=== PATIENT | female | born 2005 | race African-American/Black ===

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

== ENCOUNTER → 2023-03-18 | Emergency (ER) | payer OTHER, SELFPAY ==
[~2023-03-18] MED LIST: MORPHINE 2 MG/ML SYR ONE; NA CHLORIDE 0.9% 100 ML ONE; PIPERACIL/TAZO 3.375 GM VIAL IV ONE
--- OUTSIDE RECORDS SUMMARY | 2023-03-18 02:32 | XMS REPORT | Continuity of Care Document ---
Author Name Unknown Address [address] [place] [address] [facility] thconnect Address [address] [place] [address] Care Team Providers Care Commercial Sales Director Name Role Phone Pcp, Patient Does Not Have A Primary Care Physic terese CHILO SCHAEFER Attending Clinician Unavailable Chilo Otero Attending Clinician [phone] Doctor Unassigned, [place] Attending Clinician U NATALIE Wilkins Attending Clinician NATALIE Beckwith Attending Clinician KATARINA Evans Attending Clinician Katarina Mariscal MD Attending Clinician [phone] Unknown, Attending Attending Clinician Marilia Gray Attending Clinician [phone] KEIKO BANEGAS Attending Clinician KEIKO Gomez Attending Clinician Walter bob Payers Payer Name Policy Type Policy Number Effective Date Expirati on Date Source [facility] [id number] 2019 00:00:00 Problems Condition Name Condition Details Condition Category Status Onset Date Resolution Date Last Treatment Date Treating Clinician Comments Source Encounter for initial prescripti on of contracept rasta, unspecifie d contracept zahra Encounter for initial prescripti on of contracept rasta, unspecifie d contracept zahra Disease Active 2021-03 2-05 00:00: 00 [facility] Menorrhagi a with irregular cycle Menorrhagi a with irregular cycle Disease Active 2021-03 1-07 00:00: 00 [facility] Acute vaginitis Acute vaginitis Disease Active 2021-03 0-30 00:00: 00 [facility] General counseling and advice on female contracept ion General counseling and advice on female contracept ion Disease Active 2021-03 0 00:00: 00 [facility] Unprotecte d sexual intercours e Unprotecte d sexual intercours e Disease Active 2021-03 0 00:00: 00 [facility] Allergies, Adverse Reactions, Alerts Allergy Name Allergy Type Status Severity Reaction(s) Onset Date Inactive Date Treating Clinician Comments Source NO KNOWN ALLERGIE S Drug Class Active [facility] Social History Social Habit Start Date Stop Date Quantity Comments Source History SDOH Alcohol Frequency [facility] History SDOH Alcohol Std Drinks [facility] History SDOH Alcohol Binge [facility] Alcohol intake 2023-02-13 00:00:00 2023-02-13 00:00:00 Current drinker of alcohol (finding) [facility] History of Social function 2023-02-13 00:00:00 2023-02-13 00:00:00 [facility] Exposure to SARS-CoV-2 (event) 2022-01-30 00:00:00 2022-02-09 13:18:00 Not sure [facility] Alcohol Comment 2022-01-03 00:00:00 2022-01-03 00:00:00 occasionally [facility] Tobacco use and exposure 2022-01-03 00:00:00 2022-01-03 00:00:00 Smokeless tobacco non-user [facility] Sex Assigned At 2003 00:00:00 2005 00:00:00 [facility] Smoking Status Start Date Stop Date Source Never smoked tobacco [facility] Tobacco smoking consumption unknown [facility] Medications Ordered Medication Name Filled Medication Name Start Date Stop Date Current Medication? Ordering Clinician Indication Dosage Frequency Signature (SIG) Comments Components Source amoxicillin 875 mg tablet 2022-03 00:00: 00 02-27 05:59 :00 Yes [id number] 875mg Take 1 tablet by mouth in the morning and 1 tablet in the evening. Do all this for 10 days. [facility] medroxyPROG ESTERone (DEPO-PROVE RA) injection 150 mg 2021-03 19:00: 00 02-14 18:11 :00 No [id number] [facility] medroxyPROG ESTERone (DEPO-PROVE RA) injection 150 mg 2021-03 19:00: 00 02-14 18:11 :00 No [id number] 150mg 150 mg, Intramuscu lar, ONCE, 1 dose, On Mon02/14/22 at 1300, Routine [facility] medroxyPROG ESTERone (DEPO-PROVE RA) injection 150 mg 2021-03 19:00: 00 02-14 18:11 :00 No [id number] [address] medroxyPROG ESTERone (DEPO-PROVE RA) injection 150 mg 2021-03 19:00: 00 02-14 18:11 :00 No [id number] 150mg 150 mg, Intramuscu lar, ONCE, 1 dose, On Mon02/14/22 at 1300, Routine [facility] medroxyPROG ESTERone (DEPO-PROVE RA) syringe 150 mg 2021-03 18:15: 00 02-14 18:10 :21 No [id number] [address] [facility] medroxyPROG ESTERone (DEPO-PROVE RA) syringe 150 mg 2021-03 18:15: 00 02-14 18:10 :21 No [id number] [address] [facility] cefTRIAXone (ROCEPHIN) injection 500 mg 2021-03 20:30: 00 02-09 19:44 :00 No [id number] 500mg [facility] cefTRIAXone (ROCEPHIN) injection 500 mg 2021-03 20:30: 00 02-09 19:44 :00 No [id number] 500mg 500 mg, Intramuscu lar, ONCE, 1 dose, On Mon02/09/22 at 1430, WARREN
Re ason for Anti-Infec tive: Empiric Therapy for Suspected Infection< br>Empiric Therapy Site: Urine
D uration of therapy: 72 hours [facility] cefTRIAXone (ROCEPHIN) injection 500 mg 2021-03 20:30: 00 02-09 19:44 :00 No [id number] [address] [facility]OC[facility]PHIN[facility] 500 mg 2021-03 20:30: 00 02-09 19:44 :00 No [id number] 500mg 500 mg, Intramuscu lar, ONCE, 1 dose, On Mon02/09/22 at 1430, WARREN
Re ason for Anti-Infec tive: Empiric Therapy for Suspected Infection< br>Empiric Therapy Site: Urine
D uration of therapy: 72 hours [facility] cefTRIAXone (ROCEPHIN) injection 500 mg 2021-03 20:30: 00 02-09 19:44 :00 No [id number] [address] [facility] cefTRIAXone (ROCEPHIN) injection 500 mg 2021-03 20:30: 00 02-09 19:44 :00 No [id number] 500mg 500 mg, Intramuscu lar, ONCE, 1 dose, On Mon02/09/22 at 1430, WARREN
Re ason for Anti-Infec tive: Empiric Therapy for Suspected Infection< br>Empiric Therapy Site: Urine
D uration of therapy: 72 hours [facility] cefTRIAXone (ROCEPHIN) injection 500 mg 2021-03 20:30: 00 02-09 19:44 :00 No [id number] 500mg [facility] cefTRIAXone (ROCEPHIN) injection 500 mg 2021-03 20:30: 00 02-09 19:44 :00 No [id number] 500mg 500 mg, Intramuscu lar, ONCE, 1 dose, On Mon02/09/22 at 1430, WARREN
Re ason for Anti-Infec tive: Empiric Therapy for Suspected Infection< br>Empiric Therapy Site: Urine
D uration of therapy: 72 hours [facility] metroNIDAZO LE 500 mg tablet 2021-03 00:00: 00 Yes 500mg Take 1 tablet by mouth every 12 (twelve) hours. [facility] metroNIDAZO LE 500 mg tablet 2021-03 00:00: 00 Yes 500mg Take 1 tablet by mouth every 12 (twelve) hours. [facility] metroNIDAZO LE 500 mg tablet 2021-03 00:00: 00 Yes 500mg Take 1 tablet by mouth every 12 (twelve) hours. [facility] metroNIDAZO LE 500 mg tablet 2021-03 00:00: 00 Yes 500mg Take 1 tablet by mouth every 12 (twelve) hours. [facility] metroNIDAZO LE 500 mg tablet 2021-03 00:00: 00 Yes 500mg Take 1 tablet by mouth every 12 (twelve) hours. [facility] metroNIDAZO LE 500 mg tablet 2021-03 00:00: 00 Yes 500mg Take 1 tablet by mouth every 12 (twelve) hours. [facility] metroNIDAZO LE 500 mg tablet 2021-03 00:00: 00 Yes 500mg Take 1 tablet by mouth every 12 (twelve) hours. [facility] metroNIDAZO LE 500 mg tablet 2021-03 00:00: 00 Yes 500mg Take 1 tablet by mouth every 12 (twelve) hours. [facility] metroNIDAZO LE 500 mg tablet 2021-03 00:00: 00 Yes 500mg Take 1 tablet by mouth every 12 (twelve) hours. [facility] metroNIDAZO LE 500 mg tablet 2021-03 00:00: 00 Yes 500mg Take 1 tablet by mouth every 12 (twelve) hours. [facility] metroNIDAZO LE 500 mg tablet 2021-03 00:00: 00 Yes 500mg Take 1 tablet by mouth every 12 (twelve) hours. [facility] metroNIDAZO LE 500 mg tablet 2021-03 00:00: 00 Yes 500mg Take 1 tablet by mouth every 12 (twelve) hours. [facility] metroNIDAZO LE 500 mg tablet 2021-03 00:00: 00 Yes 500mg Take 1 tablet by mouth every 12 (twelve) hours. [facility] No known medications 2021-03 030 10:34: 21 No No known medication s [facility] No known medications 2021-03 030 10:34: 21 No No known medication s [facility] ibuprofen 600 mg tablet 2021-03 0 00:00: 00 Yes 600mg Take 600 mg by mouth every 8 (eight) hours as needed. [facility] ibuprofen 600 mg tablet 2021-03 0 00:00: 00 Yes 600mg Take 600 mg by mouth every 8 (eight) hours as needed. [facility] ibuprofen 600 mg tablet 2021-03 0 00:00: 00 Yes 600mg Take 600 mg by mouth every 8 (eight) hours as needed. [facility] ibuprofen 600 mg tablet 2021-03 0 00:00: 00 Yes 600mg Take 600 mg by mouth every 8 (eight) hours as needed. [facility] ibuprofen 600 mg tablet 2021-03 0 00:00: 00 Yes 600mg Take 600 mg by mouth every 8 (eight) hours as needed. [facility] ibuprofen 600 mg tablet 2021-03 028 00:00: 00 Yes 600mg Take 600 mg by mouth every 8 (eight) hours as needed. [facility] ibuprofen 600 mg tablet 2021-03 028 00:00: 00 Yes 600mg Take 600 mg by mouth every 8 (eight) hours as needed. [facility] ibuprofen 600 mg tablet 2021- 028 00:00: 00 Yes 600mg Take 600 mg by mouth every 8 (eight) hours as needed. [facility] ibuprofen 600 mg tablet 2021-03 0 00:00: 00 Yes 600mg Take 600 mg by mouth every 8 (eight) hours as needed. [facility] ibuprofen 600 mg tablet 2021-03 0 00:00: 00 Yes 600mg Take 600 mg by mouth every 8 (eight) hours as needed. [facility] ibuprofen 600 mg tablet 2021-03 0 00:00: 00 Yes 600mg Take 600 mg by mouth every 8 (eight) hours as needed. [facility] ibuprofen 600 mg tablet 2021-03 0 00:00: 00 Yes 600mg Take 600 mg by mouth every 8 (eight) hours as needed. [facility] ibuprofen 600 mg tablet 2021-03 00:00: 00 Yes 600mg Take 600 mg by mouth every 8 (eight) hours as needed. [facility] ibuprofen 600 mg tablet 2021-03 00:00: 00 Yes 600mg Take 600 mg by mouth every 8 (eight) hours as needed. [facility] ibuprofen 600 mg tablet 2021-03 00:00: 00 Yes 600mg Take 600 mg by mouth every 8 (eight) hours as needed. [facility] metroNIDAZO LE 500 mg tablet 2021-03 00:00: 00 01-12 04:59 :00 No [id number] 500mg Take 1 tablet by mouth every 12 (twelve) hours for 7 days. [facility] metroNIDAZO LE 500 mg tablet 2021-03 0 00:00: 00 01-12 04:59 :00 No [id number] 500mg Take 1 tablet by mouth every 12 (twelve) hours for 7 days. [facility] terconazole 80 mg vaginal suppository 2021-03 0 00:00: 00 01-08 04:59 :00 No [id number] 80mg Insert 1 Suppositor y into vagina at bedtime for 3 days. [facility] terconazole 80 mg vaginal suppository 2021-03 025 00:00: 00 01-08 04:59 :00 No [id number] 80mg Insert 1 Suppositor y into vagina at bedtime for 3 days. [facility] Vital Signs Vital Name Observation Time Observation Value Comments S rama Systolic blood pressure 2023-02-13 19:16:00 109 mm[Hg] [facility] Diastolic blood pressure 2023-02-13 19:16:00 73 mm[Hg] [facility] Heart rate 2023-02-13 19:16:00 73 /min [facility] Respiratory rate 2023-02-13 19:16:00 18 /min [facility] Body height 2023-02-13 19:16:00 160 cm [facility] Body weight 2023-02-13 19:16:00 48.988 kg [facility] BMI 2023-02-13 19:16:00 19.13 kg/m2 [facility] Oxygen saturation in Arterial blood by Pulse oximetry 2023-02-13 19:16:00 100 /min [facility] Systolic blood pressure 2022-02-14 17:38:00 108 mm[Hg] [facility] Diastolic blood pressure 2022-02-14 17:38:00 72 mm[Hg] [facility] Heart rate 2022-02-14 17:38:00 67 /min [facility] Body temperature 2022-02-14 17:38:00 36.83 Sabi [facility] Respiratory rate 2022-02-14 17:38:00 16 /min [facility] Body height 2022-02-14 17:38:00 160 cm [facility] Body weight 2022-02-14 17:38:00 50.213 kg [facility] BMI 2022-02-14 17:38:00 19.61 kg/m2 [facility] Body mass index (BMI) [Percentile] Per age and sex 2022-02-14 17:38:00 25.47 % [facility] Oxygen saturation in Arterial blood by Pulse oximetry 2022-02-14 17:38:00 98 /min [facility] Systolic blood pressure 2022-02-09 19:19:00 113 mm[Hg] [facility] Diastolic blood pressure 2022-02-09 19:19:00 73 mm[Hg] [facility] Heart rate 2022-02-09 19:19:00 60 /min [facility] Body temperature 2022-02-09 19:19:00 36.83 Sabi [facility] Respiratory rate 2022-02-09 19:19:00 18 /min [facility] Body height 2022-02-09 19:19:00 160 cm [facility] Body weight 2022-02-09 19:19:00 50.621 kg [facility] BMI 2022-02-09 19:19:00 19.77 kg/m2 [facility] Body mass index (BMI) [Percentile] Per age and sex 2022-02-09 19:19:00 27.71 % [facility] Oxygen saturation in Arterial blood by Pulse oximetry 2022-02-09 19:19:00 100 /min [facility] Systolic blood pressure 2022-01-17 17:52:00 102 mm[Hg] [facility] Diastolic blood pressure 2022-01-17 17:52:00 69 mm[Hg] [facility] Heart rate 2022-01-17 17:52:00 76 /min [facility] Respiratory rate 2022-01-17 17:52:00 18 /min [facility] Body height 2022-01-17 17:52:00 160 cm [facility] Body weight 2022-01-17 17:52:00 51.256 kg [facility] BMI 2022-01-17 17:52:00 20.02 kg/m2 [facility] Body mass index (BMI) [Percentile] Per age and sex 2022-01-17 17:52:00 31.42 % [facility] Systolic blood pressure 2022-01-03 19:01:00 116 mm[Hg] [facility] Diastolic blood pressure 2022-01-03 19:01:00 79 mm[Hg] [facility] Heart rate 2022-01-03 19:01:00 73 /min [facility] Body temperature 2022-01-03 19:01:00 37.06 Sabi [facility] Respiratory rate 2022-01-03 19:01:00 18 /min [facility] Body height 2022-01-03 19:01:00 160 cm [facility] Body weight 2022-01-03 19:01:00 53.524 kg [facility] BMI 2022-01-03 19:01:00 20.90 kg/m2 [facility] Body mass index (BMI) [Percentile] Per age and sex 2022-01-03 19:01:00 43.77 % [place] [facility] Procedures Procedure Date / Time Performed Performing Clinician Source ASSIGNMENT OF BENEFITS 2023-02-13 19:13:29 Docphoenix r Unassigned, [place] [facility] POCT TEST 2023-02-13 00:00:00 Marcos Schaefer [facility] CONSENT FOR CONTRACEPTION 2022-02-14 06:01:00 Doctor Unassigned, [place] [facility] POCT TEST 2022-02-14 00:00:00 Natalie Zuniga [facility] URINE CULTURE 2022-02-09 20:00:00 Katarina Ruelas [facility] POCT TEST 2022-02-09 19:59:00 Katarina Ruelas [facility] POCT URINALYSIS 2022-02-09 19:55:[address] [facility] GALV ONLY - VAGINAL PATHOGENS BY NUCLEIC ACID TESTING 2022-02-09 19:43:00 Katarina Ruelas [facility] GC & CHLAMYDIA AMPLIFIED ASSAY 2022-02-09 19:32:00 Katarina Ruelas [facility] GC & CHLAMYDIA AMPLIFIED ASSAY 2022-01-03 19:25:00 Keiko Banegas [facility] GALV ONLY - VAGINAL PATHOGENS BY NUCLEIC ACID TESTING 2022-01-03 19:25:00 Keiko Banegas [facility] ASSIGNMENT OF BENEFITS 2022-01-03 18:12:46 Docto r Unassigned, [place] [facility] POCT TEST 2022-01-03 00:00:00 Toni Banegas [facility] Encounters Start Date/Time End Date/Time Encounter Type Admission Type Attending Clinicians Care Facility Care Department Encounter ID Source 2023-02-17 00:00:00 2023-02-17 00:00:00 Outpatient CHILO ALARCON [facility] [id number] [facility] 2023-02-16 00:00:00 2023-02-16 00:00:[address] [facility] [id number] 350.1.13.10 4.2.7.2.686 [id number] [facility] 2023-02-13 12:30:00 2023-02-13 13:59:16 Outpatient CHILO ALARCON [facility] [id number] [facility] 2023-02-13 12:30:00 2023-02-13 13:59:16 Office [facility] [id number] 350.1.13.10 4.2.7.2.686 [id number] [facility] 2023-02-13 00:00:00 2023-02-13 00:00:00 Orders Only Doctor Unassigned, [place] [facility] 1.2.840.114 350.1.13.10 4.2.7.2.686 [id number] [facility] 2023-02-09 15:30:00 2023-02-09 15:30:00 Outpatient R CHILO SCHAEFER [facility] [id number] [facility] 2022-05-11 10:30:00 2022-05-11 10:30:00 Outpatient R [facility] [id number] [facility] 2022-02-14 11:00:00 2022-02-14 12:10:15 Outpatient R NATALIE HERBERT MARISOL [facility] [id number] [facility] 2022-02-14 11:00:00 2022-02-14 12:10:15 Office Visit Natalie Herbert [facility] 1..114 350.1.13.10 4.2.7.2.686 [id number] [facility] 2022-02-14 00:00:00 2022-02-14 00:00:00 Orders Only Doctor Unassigned, [place] [facility] 1..114 350.1.13.10 4.2.7.2.686 [id number] [facility] 2022-02-11 11:30:00 2022-02-11 11:30:00 Outpatient R JE Aury NATALIEMornea VARGASCarrieCASIE CLARE JeffersSOL [facility] [id number] [facility] 2022-02-09 13:00:00 2022-02-09 13:56:02 Outpatient R KATARINA RUELAS [facility] [id number] [facility] 2022-02-09 13:00:00 2022-02-09 13:56:02 Urgent Care Katarina Ruelas Unknown, Attending [facility] 1.840.114 350.1.13.10 4.2.7.2.686 [id number] [facility] 2022-02-09 00:00:00 2022-02-09 00:00:00 Letter (Out) Katarina Ruelas [facility] 1.840.114 350.1.13.10 4.2.7.2.686 [id number] [facility] 2022-02-09 00:00:00 2022-02-09 00:00:00 Letter (Out) Marilia Schulte [facility] 1.2.840.114 350.1.13.10 4.2.7.2.686 [id number] [facility] 2022-01-31 13:30:00 2022-01-31 13:30:00 Outpatient R KEIKO BANEGAS CHERYAL [facility] [id number] [facility] 2022-01-18 13:45:00 2022-01-18 13:45:00 Outpatient R [facility] [id number] [facility] 2022-01-17 11:30:00 2022-01-17 12:00:[address] [facility] 1..840.114 350.1.13.10 4.2.7.2.686 [id number] [facility] 2022-01-17 11:30:00 2022-01-17 11:30:00 Outpatient R REMIGIOKEIKO TEE REMIGIOKEIKO TEE [facility] [id number] [facility] 2022-01-05 00:00:00 2022-01-05 00:00:00 [facility] 1..840.114 350.1.13.10 4.2.7.2.686 [id number] [facility] 2022-01-04 00:00:00 2022-01-04 00:00:00 Case Management [facility] 1..840.114 350.1.13.10 4.2.7.2.686 [id number] [facility] 2022-01-03 11:00:00 2022-01-03 14:36:03 Outpatient R REMIGIOKEIKO TEE REMIGIOKEIKO TEE [facility] [id number] [facility] 2022-01-03 11:00:00 2022-01-03 14:36:03 Office Visit Keiko Banegas [facility] 1..840.114 350.1.13.10 4.2.7.2.686 [id number] [facility] 2022-01-03 00:00:00 2022-01-03 00:00:00 Orders Only Doctor Unassigned, [place] [facility] 1.2.840.114 350.1.13.10 4.2.7.2.686 [id number] [facility] Results Test Description Test Time Test Comments Results Result Co mments Source [id number] 19:56:00* Test Item Value Reference Range Interpretation Comme nts POCT PREG (test code = 1605) Negative On board controls acceptable with C Line (test code = 3574) Yes POCT PREG LOT # (test code = 3575) POCT PREG TEST DATE ( test code = 3576[id number] 17:51:00* Test Item Value Reference Range Interpretation Comme nts POCT PREG (test code = 1605) Negative On board controls acceptable with C Line (test code = 3574) Yes POCT PREG LOT # (test code = 3575) POCT PREG TEST DATE ( test code = 3576) [facility] [id number] 17:51:00* Test Item Value Reference Range Interpretation Comme nts POCT PREG (test code = 1605) Negative On board controls acceptable with C Line (test code = 3574) Yes POCT PREG LOT # (test code = 3575) POCT PREG TEST DATE ( test code = 3576) [facility] [id number] 19:59:00* Test Item Value Reference Range Interpretation Comme nts POCT PREG (test code = 1605) Negative On board controls acceptable with C Line (test code = 3574) Yes POCT PREG LOT # (test code = 3575) [id number] POCT PREG TEST DATE ( test code = 3576) 06/11/2023 Lab Interpretation (test cod e = 68734-2) [facility] [id number] 19:59:00* Test Item Value Reference Range Interpretation Comme nts POCT PREG (test code = 1605) Negative On board controls acceptable with C Line (test code = 3574) Yes POCT PREG LOT # (test code = 3575) [id number] POCT PREG TEST DATE ( test code = 3576) 06/11/2023 Lab Interpretation (test cod e = 58038-2) [facility] [id number] 19:59:00* Test Item Value Reference Range Interpretation Comme nts POCT PREG (test code = 1605) Negative On board controls acceptable with C Line (test code = 3574) Yes POCT PREG LOT # (test code = 3575) [id number] POCT PREG TEST DATE ( test code = 3576) 06/11/2023 Lab Interpretation (test cod e = 56600-7) [facility] [id number] 19:59:00* Test Item Value Reference Range Interpretation Comme nts POCT PREG (test code = 1605) Negative On board controls acceptable with C Line (test code = 3574) Yes POCT PREG LOT # (test code = 3575) [id number] POCT PREG TEST DATE ( test code = 3576) 06/11/2023 Lab Interpretation (test cod e = 92212-5) [facility] URINALYSIS W SPECIFIC [id number] 19:55:00* Test Item Value Reference Range Interpretation Comme nts POCT U SP GRAV (test code = 3255) 1.025 mg/dl 1.005-1.025 POCT PH U (test code = 3254) 5 mg/dl 5-8 POCT U LEUK EST (test code = 3263) Negative Negative - Negative POCT U NIT (test code = 3262) Negative Negative - Negati ve POCT U PROT (test code = 3259) Negative Negative - Negative POCT U GLU (test code = 3256) Negative Negative - Negati ve POCT U KETONE (test code = 3258) Negative Negative - Negative POCT U UROBILI (test code = 3260) Normal 0.2-1 POCT U BILI (test code = 3261) Negative Negative - Negative POCT U BLD (test code = 3257) Negative Negative - Negati ve POCT U COLOR (test code = 3266) POCT U APPEAR (test code = 3267) Lab Interpretation (test cod e = 04335-0) Normal [facility] URINALYSIS W SPECIFIC [id number] 19:55:00* Test Item Value Reference Range Interpretation Comme nts POCT U SP GRAV (test code = 3255) 1.025 mg/dl 1.005-1.025 POCT PH U (test code = 3254) 5 mg/dl 5-8 POCT U LEUK EST (test code = 3263) Negative Negative - Negative POCT U NIT (test code = 3262) Negative Negative - Negati ve POCT U PROT (test code = 3259) Negative Negative - Negative POCT U GLU (test code = 3256) Negative Negative - Negati ve POCT U KETONE (test code = 3258) Negative Negative - Negative POCT U UROBILI (test code = 3260) Normal 0.2-1 POCT U BILI (test code = 3261) Negative Negative - Negative POCT U BLD (test code = 3257) Negative Negative - Negati ve POCT U COLOR (test code = 3266) POCT U APPEAR (test code = 3267) Lab Interpretation (test cod e = 46860-5) Normal [facility] URINALYSIS W SPECIFIC [id number] 19:55:00* Test Item Value Reference Range Interpretation Comme nts POCT U SP GRAV (test code = 3255) 1.025 mg/dl 1.005-1.025 POCT PH U (test code = 3254) 5 mg/dl 5-8 POCT U LEUK EST (test code = 3263) Negative Negative - Negative POCT U NIT (test code = 3262) Negative Negative - Negati ve POCT U PROT (test code = 3259) Negative Negative - Negative POCT U GLU (test code = 3256) Negative Negative - Negati ve POCT U KETONE (test code = 3258) Negative Negative - Negative POCT U UROBILI (test code = 3260) Normal 0.2-1 POCT U BILI (test code = 3261) Negative Negative - Negative POCT U BLD (test code = 3257) Negative Negative - Negati ve POCT U COLOR (test code = 3266) POCT U APPEAR (test code = 3267) Lab Interpretation (test cod e = 53743-0) Normal [facility] URINALYSIS W SPECIFIC [id number] 19:55:00* Test Item Value Reference Range Interpretation Comme nts POCT U SP GRAV (test code = 3255) 1.025 mg/dl 1.005-1.025 POCT PH U (test code = 3254) 5 mg/dl 5-8 POCT U LEUK EST (test code = 3263) Negative Negative - Negative POCT U NIT (test code = 3262) Negative Negative - Negati ve POCT U PROT (test code = 3259) Negative Negative - Negative POCT U GLU (test code = 3256) Negative Negative - Negati ve POCT U KETONE (test code = 3258) Negative Negative - Negative POCT U UROBILI (test code = 3260) Normal 0.2-1 POCT U BILI (test code = 3261) Negative Negative - Negative POCT U BLD (test code = 3257) Negative Negative - Negati ve POCT U COLOR (test code = 3266) POCT U APPEAR (test code = 3267) Lab Interpretation (test cod e = 25329-4) Normal [facility] [id number] 19:22:00* Test Item Value Reference Range Interpretation Comme nts POCT PREG (test code = 1605) Negative On board controls acceptable with C Line (test code = 3574) Yes POCT PREG LOT # (test code = 3575) POCT PREG TEST DATE ( test code = 3576) [id number] 19:22:00* Test Item Value Reference Range Interpretation Comme nts POCT PREG (test code = 1605) Negative On board controls acceptable with C Line (test code = 3574) Yes POCT PREG LOT # (test code = 3575) POCT PREG TEST DATE ( test code = 3576) [facility]
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
[2023-03-18 08:55] VITALS: BP 125/80; TEMP 97.5; O2SAT 100
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
== END ==
LOC: ER 02:26
DX: S00.83XA Contusion of other part of head, initial encounter (principal); H11.31 Conjunctival hemorrhage, right eye; Y04.1XXA Assault by human bite, initial encounter
CPT/HCPCS: 70450; 70498; 99284; J2270; J2543; Q9967

== ENCOUNTER → 2023-05-28 | Emergency (ER) | payer SELFPAY ==
--- OUTSIDE RECORDS SUMMARY | 2023-05-28 11:54 | XMS REPORT | Continuity of Care Document ---
Author Name Unknown Address [address] [facility] [address] [place] [address] [facility] thconnect Address [address] [facility] 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 Name Role Phone Pcp, Patient Does Not Have A Primary Care Physic terese CHILO SCHAEFER Attending Clinician Unavailable Chilo Otero Attending Clinician [phone] Doctor Unassigned, Mize Attending Clinician U NATALIE Wilkins Attending Clinician NATALIE Beckwith Attending Clinician KATARINA Evans Attending Clinician Katarina Mariscal MD Attending Clinician [phone] Unknown, Attending Attending Clinician Marilia Gray Attending Clinician [phone] KEIKO BANEGAS Attending Clinician KEIKO Gomez Attending Clinician Walter bob Payers Payer Name Policy Type Policy Number Effective Date Expirati on Date Source [facility] [id number] 2019 00:00:00 Problems Condition Name Condition Details Condition Category Status Onset Date Resolution Date Last Treatment Date Treating Clinician Comments Source Encounter for initial prescripti on of contracept rasta, unspecifie d contracept zahra Encounter for initial prescripti on of contracept rasta, unspecifie d contracept zahra Disease Active 2021-03 2-05 00:00: 00 [facility] Menorrhagi a with irregular cycle Menorrhagi a with irregular cycle Disease Active 2021-03 1-07 00:00: 00 [facility] Acute vaginitis Acute vaginitis Disease Active 2021-03 0-30 00:00: 00 [facility] General counseling and advice on female contracept ion General counseling and advice on female contracept ion Disease Active 2021-03 0 00:00: 00 [facility] Unprotecte d sexual intercours e Unprotecte d sexual intercours e Disease Active 2021-03 0 00:00: 00 [facility] Allergies, Adverse Reactions, Alerts Allergy Name Allergy Type Status Severity Reaction(s) Onset Date Inactive Date Treating Clinician Comments Source NO KNOWN ALLERGIE S Drug Class Active [facility] Social History Social Habit Start Date Stop Date Quantity Comments Source History SDOH Alcohol Frequency [facility] History SDOH Alcohol Std Drinks [facility] History SDOH Alcohol Binge [facility] intake 2023-02-13 00:00:00 2023-02-13 00:00:00 Current drinker of alcohol (finding) [facility] History of Social function 2023-02-13 00:00:00 2023-02-13 00:00:00 [facility] Exposure to SARS-CoV-2 (event) 2022-01-30 00:00:00 2022-02-09 13:18:00 Not sure [facility] Alcohol Comment 2022-01-03 00:00:00 2022-01-03 00:00:00 occasionally [facility] Tobacco use and exposure 2022-01-03 00:00:00 2022-01-03 00:00:00 Smokeless tobacco non-user [facility] Sex Assigned At 2005 00:00:00 2005 00:00:00 [facility] Smoking Status Start Date Stop Date Source Never smoked tobacco [facility] Tobacco smoking consumption unknown [facility] Medications Ordered Medication Name Filled Medication Name Start Date Stop Date Current Medication? Ordering Clinician Indication Dosage Frequency Signature (SIG) Comments Components Source amoxicillin 875 mg tablet 2022-03 00:00: 00 02-27 05:59 :00 No [id number] 875mg Take 1 tablet by mouth in the morning and 1 tablet in the evening. Do all this for 10 days. [facility] medroxyPROG ESTERone (DEPO-PROVE RA) injection 150 mg 2021-03 19:00: 00 02-14 18:11 :00 No [id number] [facility] medroxyPROG ESTERone (DEPO-PROVE RA) injection 150 mg 2021-03 19:00: 00 02-14 18:11 :00 No [id number] 150mg 150 mg, Intramuscu lar, ONCE, 1 dose, On Mon02/14/22 at 1300, Routine [facility] medroxyPROG ESTERone (DEPO-PROVE RA) injection 150 mg 2021-03 19:00: 00 02-14 18:11 :00 No [id number] [facility] medroxyPROG ESTERone (DEPO-PROVE RA) injection 150 mg 2021-03 19:00: 00 02-14 18:11 :00 No [id number] 150mg 150 mg, Intramuscu lar, ONCE, 1 dose, On Mon02/14/22 at 1300, Routine [facility] medroxyPROG ESTERone (DEPO-PROVE RA) syringe 150 mg 2021-03 18:15: 00 02-14 18:10 :21 No [id number] 150[facility] medroxyPROG ESTERone (DEPO-PROVE RA) syringe 150 mg 2021-03 18:15: 00 02-14 18:10 :21 No [id number] 150[facility] cefTRIAXone (ROCEPHIN) injection 500 mg 2021-03 20:30: 00 02-09 19:44 :00 No [id number] 500mg [facility] cefTRIAXone (ROCEPHIN) injection 500 mg 2021-03 20:30: 00 02-09 19:44 :00 No [id number] 500mg 500 mg, Intramuscu lar, ONCE, 1 dose, On Mon02/09/22 at 1430, WARREN
Re ason for Anti-Infec tive: Empiric Therapy for Suspected Infection< br>Empiric Therapy Site: Urine
D uration of therapy: 72 hours [facility] cefTRIAXone (ROCEPHIN) injection 500 mg 2021-03 20:30: 00 02-09 19:44 :00 No [id number] 500[facility] cefTRIAXone (ROCEPHIN) injection 500 mg 2021-03 20:30: 00 02-09 19:44 :00 No [id number] 500mg 500 mg, Intramuscu lar, ONCE, 1 dose, On Mon02/09/22 at 1430, WARREN
Re ason for Anti-Infec tive: Empiric Therapy for Suspected Infection< br>Empiric Therapy Site: Urine
D uration of therapy: 72 hours [facility] cefTRIAXone (ROCEPHIN) injection 500 mg 2021-03 20:30: 00 02-09 19:44 :00 No [id number] 500mg [facility] cefTRIAXone (ROCEPHIN) injection 500 mg 2021-03 20:30: 00 02-09 19:44 :00 No [id number] 500mg 500 mg, Intramuscu lar, ONCE, 1 dose, On Mon02/09/22 at 1430, WARREN
Re ason for Anti-Infec tive: Empiric Therapy for Suspected Infection< br>Empiric Therapy Site: Urine
D uration of therapy: 72 hours [facility] cefTRIAXone (ROCEPHIN) injection 500 mg 2021-03 20:30: 00 02-09 19:44 :00 No [id number] 500mg [facility] cefTRIAXone (ROCEPHIN) injection 500 mg 2021-03 20:30: 00 02-09 19:44 :00 No [id number] 500mg 500 mg, Intramuscu lar, ONCE, 1 dose, On Mon02/09/22 at 1430, WARREN
Re ason for Anti-Infec tive: Empiric Therapy for Suspected Infection< br>Empiric Therapy Site: Urine
D uration of therapy: 72 hours [facility] metroNIDAZO LE 500 mg tablet 2021-03 00:00: 00 Yes 500mg Take 1 tablet by mouth every 12 (twelve) hours. [facility] metroNIDAZO LE 500 mg tablet 2021-03 00:00: 00 Yes 500mg Take 1 tablet by mouth every 12 (twelve) hours. [facility] metroNIDAZO LE 500 mg tablet 2021-03 00:00: 00 Yes 500mg Take 1 tablet by mouth every 12 (twelve) hours. [facility] metroNIDAZO LE 500 mg tablet 2021-03 00:00: 00 Yes 500mg Take 1 tablet by mouth every 12 (twelve) hours. [facility] metroNIDAZO LE 500 mg tablet 2021-03 00:00: 00 Yes 500mg Take 1 tablet by mouth every 12 (twelve) hours. [facility] metroNIDAZO LE 500 mg tablet 2021-03 00:00: 00 Yes 500mg Take 1 tablet by mouth every 12 (twelve) hours. [facility] metroNIDAZO LE 500 mg tablet 2021-03 00:00: 00 Yes 500mg Take 1 tablet by mouth every 12 (twelve) hours. [facility] metroNIDAZO LE 500 mg tablet 2021-03 00:00: 00 Yes 500mg Take 1 tablet by mouth every 12 (twelve) hours. [facility] metroNIDAZO LE 500 mg tablet 2021-03 00:00: 00 Yes 500mg Take 1 tablet by mouth every 12 (twelve) hours. [facility] metroNIDAZO LE 500 mg tablet 2021-03 00:00: 00 Yes 500mg Take 1 tablet by mouth every 12 (twelve) hours. [facility] metroNIDAZO LE 500 mg tablet 2021-03 00:00: 00 Yes 500mg Take 1 tablet by mouth every 12 (twelve) hours. [facility] metroNIDAZO LE 500 mg tablet 2021-03 00:00: 00 Yes 500mg Take 1 tablet by mouth every 12 (twelve) hours. [facility] metroNIDAZO LE 500 mg tablet 2021-03 00:00: 00 Yes 500mg Take 1 tablet by mouth every 12 (twelve) hours. [facility] No known medications 2021-03 030 10:34: 21 No No known medication s [facility] No known medications 2021-03 030 10:34: 21 No No known medication s [facility] ibuprofen 600 mg tablet 2021-03 0 00:00: 00 Yes 600mg Take 600 mg by mouth every 8 (eight) hours as needed. [facility] ibuprofen 600 mg tablet 2021-03 0 00:00: 00 Yes 600mg Take 600 mg by mouth every 8 (eight) hours as needed. [facility] ibuprofen 600 mg tablet 2021-03 0 00:00: 00 Yes 600mg Take 600 mg by mouth every 8 (eight) hours as needed. [facility] ibuprofen 600 mg tablet 2021-03 0 00:00: 00 Yes 600mg Take 600 mg by mouth every 8 (eight) hours as needed. [facility] ibuprofen 600 mg tablet 2021-03 0 00:00: 00 Yes 600mg Take 600 mg by mouth every 8 (eight) hours as needed. [facility] ibuprofen 600 mg tablet 2021-03 028 00:00: 00 Yes 600mg Take 600 mg by mouth every 8 (eight) hours as needed. [facility] ibuprofen 600 mg tablet 2021-03 028 00:00: 00 Yes 600mg Take 600 mg by mouth every 8 (eight) hours as needed. [facility] ibuprofen 600 mg tablet 2021- 028 00:00: 00 Yes 600mg Take 600 mg by mouth every 8 (eight) hours as needed. [facility] ibuprofen 600 mg tablet 2021-03 0 00:00: 00 Yes 600mg Take 600 mg by mouth every 8 (eight) hours as needed. [facility] ibuprofen 600 mg tablet 2021-03 0 00:00: 00 Yes 600mg Take 600 mg by mouth every 8 (eight) hours as needed. [facility] ibuprofen 600 mg tablet 2021-03 0 00:00: 00 Yes 600mg Take 600 mg by mouth every 8 (eight) hours as needed. [facility] ibuprofen 600 mg tablet 2021-03 0 00:00: 00 Yes 600mg Take 600 mg by mouth every 8 (eight) hours as needed. [facility] ibuprofen 600 mg tablet 2021-03 00:00: 00 Yes 600mg Take 600 mg by mouth every 8 (eight) hours as needed. [facility] ibuprofen 600 mg tablet 2021-03 00:00: 00 Yes 600mg Take 600 mg by mouth every 8 (eight) hours as needed. [facility] ibuprofen 600 mg tablet 2021-03 00:00: 00 Yes 600mg Take 600 mg by mouth every 8 (eight) hours as needed. [facility] metroNIDAZO LE 500 mg tablet 2021-03 00:00: 00 01-12 04:59 :00 No [id number] 500mg Take 1 tablet by mouth every 12 (twelve) hours for 7 days. [facility] metroNIDAZO LE 500 mg tablet 2021-03 0 00:00: 00 01-12 04:59 :00 No [id number] 500mg Take 1 tablet by mouth every 12 (twelve) hours for 7 days. [facility] terconazole 80 mg vaginal suppository 2021-03 0 00:00: 00 01-08 04:59 :00 No [id number] 80mg Insert 1 Suppositor y into vagina at bedtime for 3 days. [facility] terconazole 80 mg vaginal suppository 2021-03 025 00:00: 00 01-08 04:59 :00 No [id number] 80mg Insert 1 Suppositor y into vagina at bedtime for 3 days. [facility] Vital Signs Vital Name Observation Time Observation Value Comments S rama Systolic blood pressure 2023-02-13 19:16:00 109 mm[Hg] [facility] Diastolic blood pressure 2023-02-13 19:16:00 73 mm[Hg] [facility] Heart rate 2023-02-13 19:16:00 73 /min [facility] Respiratory rate 2023-02-13 19:16:00 18 /min [facility] Body height 2023-02-13 19:16:00 160 cm [facility] Body weight 2023-02-13 19:16:00 48.988 kg [facility] BMI 2023-02-13 19:16:00 19.13 kg/m2 [facility] Oxygen saturation in Arterial blood by Pulse oximetry 2023-02-13 19:16:00 100 /min [facility] Systolic blood pressure 2022-02-14 17:38:00 108 mm[Hg] [facility] Diastolic blood pressure 2022-02-14 17:38:00 72 mm[Hg] [facility] Heart rate 2022-02-14 17:38:00 67 /min [facility] Body temperature 2022-02-14 17:38:00 36.83 Sabi [facility] Respiratory rate 2022-02-14 17:38:00 16 /min [facility] Body height 2022-02-14 17:38:00 160 cm [facility] Body weight 2022-02-14 17:38:00 50.213 kg [facility] BMI 2022-02-14 17:38:00 19.61 kg/m2 [facility] Body mass index (BMI) [Percentile] Per age and sex 2022-02-14 17:38:00 25.47 % [facility] Oxygen saturation in Arterial blood by Pulse oximetry 2022-02-14 17:38:00 98 /min [facility] Systolic blood pressure 2022-02-09 19:19:00 113 mm[Hg] [facility] Diastolic blood pressure 2022-02-09 19:19:00 73 mm[Hg] [facility] Heart rate 2022-02-09 19:19:00 60 /min [facility] Body temperature 2022-02-09 19:19:00 36.83 Sabi [facility] Respiratory rate 2022-02-09 19:19:00 18 /min [facility] Body height 2022-02-09 19:19:00 160 cm [facility] Body weight 2022-02-09 19:19:00 50.621 kg [facility] BMI 2022-02-09 19:19:00 19.77 kg/m2 [facility] Body mass index (BMI) [Percentile] Per age and sex 2022-02-09 19:19:00 27.71 % [facility] Oxygen saturation in Arterial blood by Pulse oximetry 2022-02-09 19:19:00 100 /min [facility] Systolic blood pressure 2022-01-17 17:52:00 102 mm[Hg] [facility] Diastolic blood pressure 2022-01-17 17:52:00 69 mm[Hg] [facility] Heart rate 2022-01-17 17:52:00 76 /min [facility] Respiratory rate 2022-01-17 17:52:00 18 /min [facility] Body height 2022-01-17 17:52:00 160 cm [facility] Body weight 2022-01-17 17:52:00 51.256 kg [facility] BMI 2022-01-17 17:52:00 20.02 kg/m2 [facility] Body mass index (BMI) [Percentile] Per age and sex 2022-01-17 17:52:00 31.42 % [facility] Systolic blood pressure 2022-01-03 19:01:00 116 mm[Hg] [facility] Diastolic blood pressure 2022-01-03 19:01:00 79 mm[Hg] [facility] Heart rate 2022-01-03 19:01:00 73 /min [facility] Body temperature 2022-01-03 19:01:00 37.06 Sabi [facility] Respiratory rate 2022-01-03 19:01:00 18 /min [facility] Body height 2022-01-03 19:01:00 160 cm [facility] Body weight 2022-01-03 19:01:00 53.524 kg [facility] BMI 2022-01-03 19:01:00 20.90 kg/m2 [facility] Body mass index (BMI) [Percentile] Per age and sex 2022-01-03 19:01:00 43.77 % [place] [facility] Procedures Procedure Date / Time Performed Performing Clinician Source ASSIGNMENT OF BENEFITS 2023-02-13 19:13:29 Docpho[place] r Unassigned, Mize [facility] POCT TEST 2023-02-13 00:00:00 Marcos Schaefer [facility] CONSENT FOR CONTRACEPTION 2022-02-14 06:01:00 Doctor Unassigned, Mize [facility] POCT TEST 2022-02-14 00:00:00 Natalie Zuniga [facility] URINE CULTURE 2022-02-09 20:00:00 Katarina Ruelas [facility] POCT TEST 2022-02-09 19:59:00 Katarina Ruelas [facility] POCT URINALYSIS 2022-02-09 19:55:00 [facility] GALV ONLY - VAGINAL PATHOGENS BY NUCLEIC ACID TESTING 2022-02-09 19:43:00 Katarina Ruelas [facility] GC & CHLAMYDIA AMPLIFIED ASSAY 2022-02-09 19:32:00 Katarina Ruelas [facility] GC & CHLAMYDIA AMPLIFIED ASSAY 2022-01-03 19:25:00 Keiko Banegas [facility] GALV ONLY - VAGINAL PATHOGENS BY NUCLEIC ACID TESTING 2022-01-03 19:25:00 Keiko Banegas [facility] ASSIGNMENT OF BENEFITS 2022-01-03 18:12:46 Docto r Unassigned, Mize [facility] POCT TEST 2022-01-03 00:00:00 Toni Banegas [facility] Encounters Start Date/Time End Date/Time Encounter Type Admission Type Attending Clinicians Care Facility Care Department Encounter ID Source 2023-02-17 00:00:00 2023-02-17 00:00:00 Outpatient CHILO ALARCON [facility] [id number] [facility] 2023-02-16 00:00:00 2023-02-16 00:00:00 Telephone Chilo Schaefer [facility] 1.2.840.114 350.1.13.10 4.2.7.2.686 [id number] [facility] 2023-02-13 12:30:00 2023-02-13 13:59:16 Outpatient CHILO [facility]CON [facility] [id number] [facility] 2023-02-13 12:30:00 2023-02-13 13:59:16 Office Visit [facility]ef[facility] 1.2.840.114 350.1.13.10 4.2.7.2.686 [id number] [facility] 2023-02-13 00:00:00 2023-02-13 00:00:00 Orders Only Doctor Unassigned, Mize [facility] 1.2.840.114 350.1.13.10 4.2.7.2.686 [id number] [facility] 2023-02-09 15:30:00 2023-02-09 15:30:00 Outpatient R CHILO SCHAEFER [facility] [id number] [facility] 2022-05-11 10:30:00 2022-05-11 10:30:00 Outpatient R [facility] [id number] [facility] 2022-02-14 11:00:00 2022-02-14 12:10:15 Outpatient R NATALIE HERBERT [facility]OL [facility] [id number] [facility] 2022-02-14 11:00:00 2022-02-14 12:10:15 Office Visit Natalie Herbert [facility] 1..114 350.1.13.10 4.2.7.2.686 [id number] [facility] 2022-02-14 00:00:00 2022-02-14 00:00:00 Orders Only Doctor Unassigned, Mize [facility] 1..114 350.1.13.10 4.2.7.2.686 [id number] [facility] 2022-02-11 11:30:00 2022-02-11 11:30:00 Outpatient R JE Aury NATALIEMorena VARGASCarrieCASIE CLARE [facility] [id number] [facility] 2022-02-09 13:00:00 2022-02-09 13:56:02 Outpatient R KATARINA RUELAS [facility] [id number] [facility] 2022-02-09 13:00:00 2022-02-09 13:56:02 Urgent Care Katarina Ruelas Unknown, Attending [facility] 1.840.114 350.1.13.10 4.2.7.2.686 [id number] [facility] 2022-02-09 00:00:00 2022-02-09 00:00:00 Letter (Out) [facility] 1.840.114 350.1.13.10 4.2.7.2.686 [id number] [facility] 2022-02-09 00:00:00 2022-02-09 00:00:00 Letter (Out) Marilia Schulte [facility] 1.2.840.114 350.1.13.10 4.2.7.2.686 [id number] [facility] 2022-01-31 13:30:00 2022-01-31 13:30:00 Outpatient R KEIKO BANEGAS CHERYAL [facility] [id number] [facility] 2022-01-18 13:45:00 2022-01-18 13:45:00 Outpatient R [facility] [id number] [facility] 2022-01-17 11:30:00 2022-01-17 12:00:00 Office Visit Betty [facility] 1..840.114 350.1.13.10 4.2.7.2.686 [id number] [facility] 2022-01-17 11:30:00 2022-01-17 11:30:00 Outpatient R REMIGIOKEIKO TEE REMIGIOKEIKO TEE [facility] [id number] [facility] 2022-01-05 00:00:00 2022-01-05 00:00:00 Telephone [facility] 1..840.114 350.1.13.10 4.2.7.2.686 [id number] [facility] 2022-01-04 00:00:00 2022-01-04 00:00:00 Case Management [facility] 1..840.114 350.1.13.10 4.2.7.2.686 [id number] [facility] 2022-01-03 11:00:00 2022-01-03 14:36:03 Outpatient R REMIGIOKEIKO TEE REMIGIOKEIKO TEE [facility] [id number] [facility] 2022-01-03 11:00:00 2022-01-03 14:36:03 Office Visit Keiko Banegas [facility] 1..840.114 350.1.13.10 4.2.7.2.686 [id number] [facility] 2022-01-03 00:00:00 2022-01-03 00:00:00 Orders Only Doctor Unassigned, Mize [facility] 1.2.840.114 350.1.13.10 4.2.7.2.686 [id number] [facility] Results Test Description Test Time Test Comments Results Result Co mments Source [facility] [id number] 19:56:00* Test Item Value Reference Range Interpretation Comme nts POCT PREG (test code = 1605) Negative On board controls acceptable with C Line (test code = 3574) Yes POCT PREG LOT # (test code = 3575) POCT PREG TEST DATE ( test code = 3576) [id number] 17:51:00* Test Item Value Reference Range Interpretation Comme nts POCT PREG (test code = 1605) Negative On board controls acceptable with C Line (test code = 3574) Yes POCT PREG LOT # (test code = 3575) POCT PREG TEST DATE ( test code = 3576) [facility] [id number] 17:51:00* Test Item Value Reference Range Interpretation Comme nts POCT PREG (test code = 1605) Negative On board controls acceptable with C Line (test code = 3574) Yes POCT PREG LOT # (test code = 3575) POCT PREG TEST DATE ( test code = 3576) [facility] [id number] 19:59:00* Test Item Value Reference Range Interpretation Comme nts POCT PREG (test code = 1605) Negative On board controls acceptable with C Line (test code = 3574) Yes POCT PREG LOT # (test code = 3575) [id number] POCT PREG TEST DATE ( test code = 3576) 06/11/2023 Lab Interpretation (test cod e = 03374-2) [facility] [id number] 19:59:00* Test Item Value Reference Range Interpretation Comme nts POCT PREG (test code = 1605) Negative On board controls acceptable with C Line (test code = 3574) Yes POCT PREG LOT # (test code = 3575) [id number] POCT PREG TEST DATE ( test code = 3576) 06/11/2023 Lab Interpretation (test cod e = 84146-3) [facility] [id number] 19:59:00* Test Item Value Reference Range Interpretation Comme nts POCT PREG (test code = 1605) Negative On board controls acceptable with C Line (test code = 3574) Yes POCT PREG LOT # (test code = 3575) [id number] POCT PREG TEST DATE ( test code = 3576) 06/11/2023 Lab Interpretation (test cod e = 08747-7) [facility] [id number] 19:59:00* Test Item Value Reference Range Interpretation Comme nts POCT PREG (test code = 1605) Negative On board controls acceptable with C Line (test code = 3574) Yes POCT PREG LOT # (test code = 3575) [id number] POCT PREG TEST DATE ( test code = 3576) 06/11/2023 Lab Interpretation (test cod e = 58005-6) [facility] [facility] URINALYSIS W SPECIFIC [id number] 19:55:00* Test Item Value Reference Range Interpretation [...] 3267) Lab Interpretation (test cod e = 90072-1) Normal [facility] URINALYSIS W SPECIFIC [id number] 19:55:00* Test Item Value Reference Range Interpretation [...] 3267) Lab Interpretation (test cod e = 03252-3) Normal [facility] URINALYSIS W SPECIFIC [id number] 19:55:00* Test Item Value Reference Range Interpretation [...] 3267) Lab Interpretation (test cod e = 91550-1) Normal [facility] URINALYSIS W SPECIFIC [id number] 19:55:00* Test Item Value Reference Range Interpretation [...] 3267) Lab Interpretation (test cod e = 98681-7) Normal [facility] [id number] 19:22:00* Test Item Value Reference Range Interpretation Comme nts POCT PREG (test code = 1605) Negative On board controls acceptable with C Line (test code = 3574) Yes POCT PREG LOT # (test code = 3575) POCT PREG TEST DATE ( test code = 3576) [facility] [id number] 19:22:00* Test Item Value Reference Range Interpretation Comme nts POCT PREG (test code = 1605) Negative On board controls acceptable with C Line (test code = 3574) Yes POCT PREG LOT # (test code = 3575) POCT PREG TEST DATE ( test code = 3576) [facility]
[2023-05-28 12:48] LABS: Absolute Basophils 0.1 K/uL (0-0.5); Absolute Eosinophils 0.1 K/uL (0-0.5); Absolute Lymphocytes (CBC) 1.8 K/uL (0.7-4.9); Absolute Monocytes 0.5 K/uL (0.1-1.3); Absolute Neutrophil 4.7 K/uL (1.8-8.0); Basophils % 0.9 % (0-1.3); Eosinophils % 1.4 % (0-4.4); Hematocrit 38.6 % (36.0-45.0); Hemoglobin 13.1 g/dL (12.0-15.0); Lymphocytes % 25.2 % (15.3-44.8); MCH 30.1 pg (27.0-35.0); MCHC 33.9 g/dL (32.0-36.0); MCV 88.7 fL (80-100); MPV 7.8 fL (7.6-11.3); Monocytes % 7.3 % (3.3-12.3); Neutrophils % 65.2 % (41.7-73.7); Nucleated Red Blood Cells % 0.1 % (0-0); Platelets 309 thou/uL (152-406); RBC Red Blood Cell Count 4.35 M/uL (3.86-4.86); Red Cell Distribution Width 12.8 % (12.1-15.2)
[2023-05-28 13:05] LABS: Albumin 3.8 g/dL (3.4-5.0); Albumin/Globulin Ratio 1.1 (1.1-1.8); Anion Gap 9.9 mEq/L (5.0-15.0); Bilirubin Total 0.6 mg/dL (0.2-1.0); Globulin 3.5 g/dL (2.3-3.5); Potassium 3.9 mEq/L (3.5-5.1); Protein, Total 7.3 g/dL (6.4-8.2)
[2023-05-28 13:22] LABS: Specific Gravity 1.023 (1.005-1.030)
[2023-05-28 13:24] LABS: Specific Gravity 1.023 (1.005-1.030); Urine Bilirubin NEGATIVE (Negative); Urine Blood Negative (Negative); Urine Clarity Clear (Clear); Urine Color Dark-Yellow (Yellow); Urine Glucose NEGATIVE (Negative); Urine Ketones NEGATIVE (Negative); Urine Microscopic Reflex YN NO UMIC; Urine Nitrite NEGATIVE (Negative); Urine Protein NEGATIVE (Negative); Urine Urobilinogen Normal (Normal); Urine pH 5.5 (5.0-7.0)
--- NOTE | 2023-05-28 14:24 | RAD REPORT ---
EXAM DESCRIPTION: CT - Abdomen Pelvis W Contrast - 05/28/2023 1:48 pm CLINICAL HISTORY: ABD PAIN COMPARISON: No comparisons TECHNIQUE: Thin cut axial CT imaging of the abdomen and pelvis was performed following intravenous a dministration of iodinated contrast. Multiplanar reformats were generated and reviewed. All CT scans are performed using dose optimization technique as appropriate and may include automated exposure control or mA/KV adjustment according to patient size. FINDINGS: No suspicious findings in the lung bases. The liver, spleen, adrenal glands, and pancreas show no suspicious findings. Gallbladder and biliary tree are also without suspicious finding. Symmetric renal function is seen with no hydronephrosis or suspicious renal mass. No dilated bowel loops or bowel wall thickening. No free air, or inflammatory stranding. Mild free pe lvic fluid. No hernia, mass or bulky lymphadenopathy. Dominant left ovarian 3.8 x 2.8 x 4.4 cm cyst c yst. Marginally enhancing is small focus in the right adnexal region, may represent a recently ruptur ed follicle. Uterus is retroverted with some fluid distention of the endometrial cavity. The urinary bladder is without significant finding. No suspicious bony findings. IMPRESSION: Mild free pelvic fluid, nonspecific but possibly physiologic relating to recent cyst rup ture. Dominant left ovarian 4.4 cm cyst. Uterus is retroverted with some fluid distention of the endometrial cavity. Please correlate with men strual phase. No other acute intra-abdominal process.
--- NOTE | 2023-05-28 14:30 | EDPHYS ---
Physician Documentation [facility] Name: Yuli Menjivar Age: 17 yrs Sex: Female : 2005 Arrival Date: 05/28/2023 Time: 11:50 Bed 5 Private MD: ED Physician Dina Real HPI: 05/27 12:41 This 17 yrs old Black Female presents to ER via Ambulatory with complaints of Abdominal sb4 Pain, Urinary Problem - BLEEDING. 12:41 Patient reports intermittent lower abdominal pain for a few months now, however she sb4 started peeing "straight "blood yesterday. She states that she is not on her period, she is certain that it is coming from her urethra. She is sexually active, but uses protection, and is in a committed relationship. Denies any vaginal symptoms. Denies any flank pain. Does report history of UTIs. 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 - Social history:: Smoking status: Reported history of juuling and/or vaping. ROS: 12:41 Constitutional: Negative for fever, chills, and weight loss, sb4 12:41 Abdomen/GI: Positive for abdominal pain, nausea, 12:41 : Positive for hematuria, 12:41 All other systems are negative, Exam: 12:41 Constitutional: This is a well developed, well nourished patient who is awake, alert, sb4 and in no acute distress. Head/Face: Normocephalic, atraumatic. Eyes: Extra-ocular motions intact. Periorbital areas with no swelling, redness, or edema. ENT: Mucous membranes moist. Cardiovascular: Regular rate and rhythm with a normal S1 and S2. Respiratory: Lungs have equal breath sounds bilaterally, clear to auscultation and percussion. No rales, rhonchi or wheezes noted. No increased work of breathing, no retractions or nasal flaring. Abdomen/GI: Soft, non-tender, no distension. Skin: Warm, dry with normal turgor. Normal color with no rashes, no lesions, and no evidence of cellulitis. MS/ Extremity: Pulses equal, no cyanosis. Neurovascular intact. Full, normal range of motion. Neuro: Awake and alert, GCS 15, oriented to person, place, time, and situation. Motor strength 5/5 in all extremities. Sensory grossly intact. Vital Signs: 12:17 BP 132 / 87; Pulse 67; Resp 16 S; Temp 98.2(TE); Pulse Ox 99% on R/A; Weight 47.63 kg aa5 (R); Height 5 ft. 4 in. (R); 14:20 BP 125 / 80; Pulse 70; Resp 18; Pulse Ox 99% on R/A; rs5 12:17 Body Mass Index 18.02 (47.63 kg, 162.56 cm) - Percentile 6.3 % aa5 MDM: 12:17 Patient medically screened. sb4 12:41 Differential diagnosis: UTI, PID, nephrolithiasis, pyelonephritis, STI, dysmenorrhea. sb4 14:29 Data reviewed: vital signs, nurses notes, lab test result(s), radiologic studies, and sb4 as a result, I will discharge patient. Counseling: I had a detailed discussion with the patient and/or guardian regarding the historical points, exam findings, and any diagnostic results supporting the discharge/admit diagnosis, lab results, radiology results, the need for outpatient follow up, an OB/Gyne specialist, to return to the emergency department if symptoms worsen or persist or if there are any questions or concerns that arise at home. 05/27 12:24 Order name: CBC with Diff; Complete Time: 12:51 sb4 05/27 12:24 Order name: CMP; Complete Time: 13:06 sb4 05/27 12:24 Order name: Test, Urine; Complete Time: 13:32 sb4 05/27 12:24 Order name: Urinalysis w/ reflexes; Complete Time: 13:26 sb4 05/27 13:32 Order name: CT Abd/Pelvis - IV Contrast Only; Complete Time: 14:24 sb4 05/27 12:24 Order name: IV Saline Lock; Complete Time: 12:41 sb4 05/27 12:24 Order name: Labs collected and sent; Complete Time: 12:41 sb4 Administered Medications: 14:04 Drug: NS 0.9% IV 1000 ml IV at 1 bolus Per protocol; 1000 mL bolus Route: IV; Rate: 1 bp bolus; Site: left antecubital; 14:20 Follow up: Response: No adverse reaction rs5 Disposition: 13:03 Co-signature as Attending Physician, Dina Real MD I agree with the assessment and cp3 plan of care. Disposition Summary: 05/28/23 14:30 Discharge Ordered Notes: Location: Home sb4 Problem: an ongoing problem sb4 Symptoms: have improved sb4 Condition: Stable sb4 Diagnosis - Other ovarian cysts sb4 Followup: sb4 - With: Tricia Cruz MD - When: As needed - Reason: Further diagnostic work-up, Recheck today's complaints, Re-evaluation by your physician Discharge Instructions: - Discharge Summary Sheet sb4 - Ovarian Cyst, [id number] sb4 Forms: - Thank You Letter sb4 - Patient Portal Instructions sb4 - Leadership Thank You Letter sb4 Prescriptions: - Diclofenac Sodium 75 mg Oral Tablet Sustained Release - take 1 tablet ORAL route 2 times per day; 30 tablet; Refills: 0, Product sb4 Selection Permitted Signatures: Dispatcher [employer] Dina Antony MD MD cp3 Daniela Conner, RN RN aa5 Michael Jones RN RN Emily Hugo PA-C PAFlora sb4 Brent Joyce RN rs5
--- NOTE | 2023-05-28 14:30 | ER ---
Nurse's Notes [facility] Name: Yuli Menjivar Age: 17 yrs Sex: Female : 2005 Arrival Date: 05/28/2023 Time: 11:50 Bed 5 Private MD: Diagnosis: Other ovarian cysts Presentation: 05/27 12:17 Chief complaint: Patient states: "I've been having lower abdominal pain for months but aa5 his month it has been worse". pt also reports blood in urine since yesterday, denies burning with urination, reports urinary frequency. Coronavirus screen: At this time, the client does not indicate any symptoms associated with coronavirus-19. Ebola Screen: Patient denies travel to an Ebola-affected area in the 21 days before illness onset. Initial Sepsis Screen: Does the patient meet any 2 criteria? No. Patient's initial sepsis screen is negative. Does the patient have a suspected source of infection? No. Patient's initial sepsis screen is negative. Risk Assessment: Do you want to hurt yourself or someone else? Patient reports no desire to harm self or others. Onset of symptoms was May 2023. 12:17 Acuity: CHECO 3 aa5 12:17 Method Of Arrival: Ambulatory aa5 Triage Assessment: 12:20 General: Appears in no apparent distress. uncomfortable, Behavior is calm, cooperative. 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 - Social history:: Smoking status: Reported history of juuling and/or vaping. Screenin:20 [facility] ED Fall Risk Assessment (Adult) History of falling in the last 3 months, rs5 including since admission No falls in past 3 months (0 pts) Confusion or Disorientation No (0 pts) Intoxicated or Sedated No (0 pts) Impaired Gait No (0 pts) Mobility Assist Device Used No (0 pt) Altered Elimination No (0 pt) Score/Fall Risk Level 0 - 2 = Low Risk Oriented to surroundings, Maintained a safe environment. Abuse screen: Denies threats or abuse. Nutritional screening: No deficits noted. Tuberculosis screening: No symptoms or risk factors identified. Assessment: 12:20 General: Appears in no apparent distress. uncomfortable, Behavior is calm, cooperative. rs5 Pain: Complains of pain in lower abdomen Pain currently is 4 out of 10 on a pain scale. Quality of pain is described as aching. Neuro: Level of Consciousness is awake, alert, obeys commands, Oriented to person, place, time, situation, Appropriate for age. Cardiovascular: Patient's skin is warm and dry. Rhythm is regular. Respiratory: Airway is patent Respiratory effort is even, unlabored, Respiratory pattern is regular, symmetrical. GI: Abdomen is flat, non-distended, Bowel sounds present X 4 quads. Abd is soft and non tender X 4 quads. 12:20 : Reports "mild bleeding". EENT: No signs and/or symptoms were reported regarding the rs5 EENT system. Derm: Skin is intact, Skin is dry, Skin is normal, Skin temperature is warm. Musculoskeletal: Range of motion: intact in all extremities. 13:30 Reassessment: Patient and/or family updated on plan of care and expected duration. Pain rs5 level reassessed. Patient is alert, oriented x 3, equal unlabored respirations, skin warm/dry/pink. Patient states feeling better. 14:20 Reassessment: No changes from previously documented assessment. rs5 Vital Signs: 12:17 BP 132 / 87; Pulse 67; Resp 16 S; Temp 98.2(TE); Pulse Ox 99% on R/A; Weight 47.63 kg aa5 (R); Height 5 ft. 4 in. (R); 14:20 BP 125 / 80; Pulse 70; Resp 18; Pulse Ox 99% on R/A; rs5 12:17 Body Mass Index 18.02 (47.63 kg, 162.56 cm) - Percentile 6.3 % aa5 ED Course: 11:55 Patient arrived in ED. mg5 11:55 Emily Spencer PA-C is PHCP. sb4 11:55 Dina Real MD is Attending Physician. sb4 12:17 Arm band placed on. aa5 12:18 Triage completed. aa5 12:20 Patient has correct armband on for positive identification. Placed in gown. Bed in low rs5 position. Call light in reach. Side rails up X2. 12:20 No provider procedures requiring assistance completed. rs5 12:40 Initial lab(s) drawn, by me, sent to lab. Inserted saline lock: 22 gauge in left aa5 antecubital area, using aseptic technique. Blood collected. 13:14 Urine collected: clean catch specimen, clear. Thermoregulation: warm blanket given to patient. 13:50 CT Abd/Pelvis - IV Contrast Only In Process Unspecified. EDMS 14:00 Michael Jones, RN is Primary Nurse. bp 14:30 Tricia Cruz MD is Referral Physician. sb4 14:35 IV discontinued, intact, bleeding controlled, No redness/swelling at site. Pressure rs5 dressing applied. Administered Medications: 14:04 Drug: NS 0.9% IV 1000 ml IV at 1 bolus Per protocol; 1000 mL bolus Route: IV; Rate: 1 bp bolus; Site: left antecubital; 14:20 Follow up: Response: No adverse reaction rs5 Medication: 14:40 VIS not applicable for this client. rs5 Outcome: 14:30 Discharge ordered by . sb4 14:50 Discharged to home ambulatory, rs5 14:50 Condition: stable 14:50 Discharge instructions given to patient, Instructed on discharge instructions, follow up and referral plans. medication usage, Demonstrated understanding of instructions, follow-up care, medications, Prescriptions given X 1, 14:55 Patient left the ED. rs5 Signatures: Dispatcher [employer] [facility] Daniela Conner RN RN aa5 Anais Can RN RN Michael Jones RN RN bp Brown, Sophia, PA-C PA-C sb4 Brent Joyce RN RN rs5 Cheryle Key mg5 Corrections: (The following items were deleted from the chart) 14:58 14:58 Patient left the ED. rs5 rs5 15:03 14:20 IV discontinued, intact, bleeding controlled, No redness/swelling at site. rs5 Pressure dressing applied, rs5 15:03 12:20 Pain: Complains of pain in lower abdomen Pain currently is 5 out of 10 on a pain rs5 scale. Quality of pain is described as aching, rs5 15:03 12:20 Pain: Complains of pain in lower abdomen Pain currently is 3 out of 10 on a pain rs5 scale. Quality of pain is described as aching, rs5
[2023-05-28 15:29] VITALS: BP 132/87; TEMP 98.2; O2SAT 99
== END ==
LOC: ER 11:50
DX: N83.299 Other ovarian cyst, unspecified side (principal)
CPT/HCPCS: 36415; 74177; 80053; 81003; 81025; 85025; 99285; Q9967

== ENCOUNTER 2024-02-03 12:16 | Emergency (ER) | payer SELFPAY ==
[2024-02-03 13:38] LABS: Absolute Basophils 0.1 K/uL (0-0.5); Absolute Eosinophils 0.2 K/uL (0-0.5); Absolute Lymphocytes (CBC) 2.3 K/uL (0.7-4.9); Absolute Monocytes 1.1 K/uL (0.1-1.3); Absolute Neutrophil 7.7 K/uL (1.8-8.0); Basophils % 0.6 % (0-1.3); Eosinophils % 1.4 % (0-4.4); Hematocrit 37.7 % (36.0-45.0); Hemoglobin 12.4 g/dL (12.0-15.0); Lymphocytes % 20.1 % (15.3-44.8); MCH 28.8 pg (27.0-35.0); MCHC 32.9 g/dL (32.0-36.0); MCV 87.4 fL (80-100); MPV 7.9 fL (7.6-11.3); Monocytes % 9.4 % (3.3-12.3); Neutrophils % 68.5 % (41.7-73.7); Platelets 353 thou/uL (152-406); RBC Red Blood Cell Count 4.31 M/uL (3.86-4.86); Red Cell Distribution Width 12.9 % (12.1-15.2)
[2024-02-03 13:42] LABS: Specific Gravity 1.026 (1.005-1.030); Sqamous Epithelial <5 /HPF (None Seen); Urine Bacteria None Seen /HPF (<20); Urine Bilirubin NEGATIVE (Negative); Urine Blood 3+ (Negative); Urine Clarity Turbid (Clear); Urine Color Light-Yellow (Yellow); Urine Culture Reflex Order NOT NEEDED; Urine Glucose NEGATIVE (Negative); Urine Ketones NEGATIVE (Negative); Urine Microscopic Reflex YN ORDER UMIC; Urine Mucus Slight /HPF (None Seen); Urine Nitrite NEGATIVE (Negative); Urine Protein TRACE (Negative); Urine RBC >50 /HPF (None Seen); Urine Urobilinogen Normal (Normal); Urine WBC <5 /HPF (<5)
[2024-02-03 14:13] LABS: Anion Gap 8.7 mEq/L (5.0-15.0); Potassium 3.7 mEq/L (3.5-5.1)
--- NOTE | 2024-02-03 14:50 | RAD REPORT ---
EXAMINATION: Transvaginal OB COMPARISON: None. HISTORY: [facility] MAIN VAGINAL BLEEDING Bed Name: 20 TECHNIQUE: Real-time ultrasound was performed through the pelvis. A transvaginal scan was performed t o better visualize the intrauterine contents and adnexa. FINDINGS: There is a single living intrauterine . Sizable subchorionic heterogeneous collection anterior/right of the gestational sac, measuring 3.7 x 3.6 x 1.5 cm. Both ovaries are visualized, with large anechoic cysts within the right ovary, largest measuring up t o 6.0 cm. A hemorrhagic present within the left ovary, measuring up to 2.9 cm. Trace free fluid in the cul-de-sac. Measurements and Calculations: Comobabi rump length 5.9 mm, consistent with a sonographic age of 6 weeks, 3 days. The patient's LMP da dav are not stated. heart rate: 116 bpm. Small yolk sac measuring 2.2 mm. IMPRESSION: Single living intrauterine , with a composite sonographic age of 6 weeks, 3 days. Large heterogeneous collection adjacent to the gestational sac, suggesting a subchorionic hemorrhage. Close clinical follow-up is recommended. Consider short-term sonographic follow-up of the hemorrhage size as well. Trace fluid in the cul-de-sac, may be physiologic. Bilateral ovarian cysts as above.
--- NOTE | 2024-02-03 15:02 | EDPHYS ---
Physician Documentation [facility] Name: Yuli Menjivar Age: 18 yrs Sex: Female : 2005 Arrival Date: 02/03/2024 Time: 12:16 Bed 20 Private MD: ED Physician Ezequiel Law HPI: 02/02 16:30 This 18 yrs old Black Female presents to ER via Ambulatory with complaints of Vaginal dr5 Bleeding. 16:30 The patient presents with vaginal bleeding that is light, spotting, with no clots. dr5 Onset: The symptoms/episode began/occurred acutely. Patient is a 18-year-old female coming in with vaginal bleeding started this morning. Patient denies chest pain shortness of breath. Patient also denies passing any clots. Patient also reports mild right lower quadrant abdominal pain.. 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 - Infectious Disease History:: Denies. - Social history:: Smoking status: Reported history of juuling and/or vaping. ROS: 16:31 Positive for vaginal bleeding, dr5 16:31 Constitutional: as per hpi Exam: 16:31 Constitutional: This is a well developed, well nourished patient who is awake, alert, dr5 and in no acute distress. Head/Face: Normocephalic, atraumatic. Eyes: Pupils equal round and reactive to light, extra-ocular motions intact. Lids and lashes normal. Conjunctiva and sclera are non-icteric and not injected. Cornea within normal limits. Periorbital areas with no swelling, redness, or edema. ENT: Nares patent. No nasal discharge, no septal abnormalities noted. Tympanic membranes are normal and external auditory canals are clear. Oropharynx with no redness, swelling, or masses, exudates, or evidence of obstruction, uvula midline. Mucous membranes moist. Neck: Trachea midline, no thyromegaly or masses palpated, and no cervical lymphadenopathy. Supple, full range of motion without nuchal rigidity, or vertebral point tenderness. No Meningismus. Cardiovascular: Regular rate and rhythm with a normal S1 and S2. Normal PMI, no JVD. No pulse deficits. Respiratory: Lungs have equal breath sounds bilaterally, clear to auscultation. No rales, rhonchi or wheezes noted. No increased work of breathing, no retractions or nasal flaring. Abdomen/GI: Soft, non-tender, non-distended 16:31 Abdomen/GI: Exam negative for acute changes, Inspection: abdomen appears normal, Bowel sounds: normal, Palpation: abdomen is soft and non-tender, 16:31 Skin: Exam negative for 16:31 Neuro: Exam negative for acute changes, Vital Signs: 12:57 BP 135 / 79; Pulse 85; Resp 16; Temp 97.2(TE); Pulse Ox 100% on R/A; Weight 58.97 kg; cm10 Height 5 ft. 4 in. ; Pain 5/10; 15:05 BP 133 / 74; Pulse 77; Resp 17; Pulse Ox 99% on R/A; rs5 12:57 Body Mass Index 22.31 (58.97 kg, 162.56 cm) cm10 12:57 Pain Scale: Adult cm10 MDM: 12:46 Medical Screening Exam initiated dr5 16:31 Differential diagnosis: abruptio placentae, threatened Ab, inevitable Ab, molar dr5 preganancy, Subchorionic hemorrhage. Data reviewed: vital signs, nurses notes, lab test result(s), radiologic studies, ultrasound. Consideration of Admission/Observation Escalation of care including admission/observation considered. Consider escalation versus admission if patient had right lower quadrant pain with ectopic . Care significantly affected by the following Social Determinants of Health: Poor access to healthcare and/or lack of insurance, Poor access to transportation, Problems related to employment. Counseling: I had a detailed discussion with the patient and/or guardian regarding the historical points, exam findings, and any diagnostic results supporting the discharge/admit diagnosis, the presence of at least one elevated blood pressure reading (>120/80) during this emergency department visit, lab results, radiology results, the need for outpatient follow up, for definitive care, an OB/Gyne specialist, to return to the emergency department if symptoms worsen or persist or if there are any questions or concerns that arise at home. ED course: All labs and ultrasound result printed and handed to patient. Explained subchorionic hemorrhage and diagnosis. Recommended following up with BACK UP WORKER soon as possible. Recommended starting taking multivitamin with folic acid. Make appointment for OB this week. All questions answered. Stable at discharge. 02/02 13:03 Order name: Abo/rh Typing; Complete Time: 14:36 dr5 02/02 13:03 Order name: Basic Metabolic Panel; Complete Time: 14:36 dr5 02/02 13:03 Order name: CBC with Diff; Complete Time: 13:44 dr5 02/02 13:03 Order name: Quantitative Hcg; Complete Time: 14:36 dr5 02/02 13:03 Order name: Urinalysis w/ reflexes; Complete Time: 13:44 dr5 02/02 13:03 Order name: US Transvaginal Ob; Complete Time: 14:56 dr5 Administered Medications: No medications were administered Disposition Summary: 02/03/24 15:02 Discharge Ordered Notes: Location: Home dr5 Condition: Stable dr5 Diagnosis - Other hemorrhage in early dr5 Followup: dr5 - With: Emergency Department - When: As needed - Reason: Worsening of condition Followup: dr5 - With: Private Physician - When: 1 - 2 days - Reason: Recheck today's complaints, Continuance of care, Re-evaluation by your physician Discharge Instructions: - Discharge Summary Sheet dr5 - Vaginal Bleeding During , First Trimester dr5 - Subchorionic Hematoma dr5 Forms: - Medication Reconciliation Form dr5 - Patient Portal Instructions dr5 - Leadership Thank You Letter dr5 Signatures: Dispatcher [employer] Diann Skelton RN RN cm10 Marciano Barber, PROJECT MANAGER PROCESS DEVELOPMENT-C PROJECT MANAGER PROCESS DEVELOPMENT-Cdr5 Corrections: (The following items were deleted from the chart) 16:31 16:30 Patient is a 18-year-old female coming in with vaginal bleeding. dr5 dr5
--- NOTE | 2024-02-03 15:02 | ER ---
Nurse's Notes [facility] Name: Yuli Menjivar Age: 18 yrs Sex: Female : 2005 Arrival Date: 02/03/2024 Time: 12:16 Bed 20 Private MD: Diagnosis: Other hemorrhage in early Presentation: 02/02 12:57 Chief complaint: Patient states: Vaginal bleeding onset this morning. Pt reports that cm10 she is also have RLQ abdominal pain onset last week. LMP: Unknown. Coronavirus screen: Client denies travel out of the [place] in the last 14 days. Ebola Screen: Patient denies travel to an Ebola-affected area in the 21 days before illness onset. No symptoms or risks identified at this time. Initial Sepsis Screen: Does the patient meet any 2 criteria? No. Patient's initial sepsis screen is negative. Does the patient have a suspected source of infection? No. Patient's initial sepsis screen is negative. Risk Assessment: Do you want to hurt yourself or someone else? Patient reports no desire to harm self or others. Onset of symptoms was February 03, 2024. 12:57 Method Of Arrival: Ambulatory cm10 12:57 Acuity: CHECO 3 cm10 Triage Assessment: 12:58 General: Appears in no apparent distress. comfortable, Behavior is calm, cooperative. cm10 Pain: Complains of pain in right lower quadrant. Neuro: No deficits noted. Level of Consciousness is awake, alert, Oriented to person, place, time, situation, Appropriate for age. Respiratory: No deficits noted. Airway is patent Respiratory effort is even, unlabored, Respiratory pattern is regular, symmetrical. MANAGER CONTRACT: 12:59 1, Full Term 0, Premature 0, 1, Living 0, unknown cm10 16:30 1, Full Term 0, 0, Living 0, unknown dr5 Historical: - Allergies: 12:58 No Known Allergies; cm10 - PMHx: 12:58 None; cm10 - PSHx: 12:58 None; cm10 - Immunization history:: Adult Immunizations up to date. - Infectious Disease History:: Denies. - Social history:: Smoking status: Reported history of juuling and/or vaping. Screenin:45 [facility] ED Fall Risk Assessment (Adult) History of falling in the last 3 months, rs5 including since admission No falls in past 3 months (0 pts) Confusion or Disorientation No (0 pts) Intoxicated or Sedated No (0 pts) Impaired Gait No (0 pts) Mobility Assist Device Used No (0 pt) Altered Elimination No (0 pt) Score/Fall Risk Level 0 - 2 = Low Risk Oriented to surroundings, Maintained a safe environment. Abuse screen: Denies threats or abuse. Nutritional screening: No deficits noted. Tuberculosis screening: No symptoms or risk factors identified. Assessment: 12:45 General: Appears in no apparent distress. uncomfortable, Behavior is calm, cooperative. rs5 Pain: Denies pain. Neuro: Level of Consciousness is awake, alert, obeys commands, Oriented to person, place, time, situation. Cardiovascular: Patient's skin is warm and dry. Respiratory: Airway is patent Respiratory effort is even, unlabored, Respiratory pattern is regular, symmetrical. GI: Abdomen is round non-distended, Abd is soft and non tender X 4 quads. : Reports vaginal bleeding that is light flow. EENT: No signs and/or symptoms were reported regarding the EENT system. Derm: Skin is intact, Skin is pink, warm \T\ dry. Musculoskeletal: Range of motion: intact in all extremities. 13:55 Reassessment: Patient and/or family updated on plan of care and expected duration. Pain rs5 level reassessed. Patient is alert, oriented x 3, equal unlabored respirations, skin warm/dry/pink. 13:55 : rs5 15:10 Reassessment: Patient and/or family updated on plan of care and expected duration. Pain rs5 level reassessed. Patient is alert, oriented x 3, equal unlabored respirations, skin warm/dry/pink. Vital Signs: 12:57 BP 135 / 79; Pulse 85; Resp 16; Temp 97.2(TE); Pulse Ox 100% on R/A; Weight 58.97 kg; cm10 Height 5 ft. 4 in. ; Pain 5/10; 15:05 BP 133 / 74; Pulse 77; Resp 17; Pulse Ox 99% on R/A; rs5 12:57 Body Mass Index 22.31 (58.97 kg, 162.56 cm) cm10 12:57 Pain Scale: Adult cm10 ED Course: 12:21 Patient arrived in ED. ra3 12:29 Marciano Barber FNP-C is PHCP. dr5 12:29 Ezequiel Law MD is Attending Physician. dr5 12:45 Brent Joyce, RN is Primary Nurse. rs5 12:45 Patient has correct armband on for positive identification. Placed in gown. Bed in low rs5 position. Call light in reach. Side rails up X2. 12:45 No provider procedures requiring assistance completed. rs5 12:58 Triage completed. cm10 12:59 Arm band placed on right wrist. Patient placed in an exam room, on a stretcher. cm10 13:01 Inserted saline lock: 20 gauge in right antecubital area, using aseptic technique. rs5 Blood collected. Flushed with 10 mL NS. 14:00 US Transvaginal Ob In Process Unspecified. EDMS 15:14 IV discontinued, intact, bleeding controlled, No redness/swelling at site. Pressure rs5 dressing applied. Administered Medications: No medications were administered Medication: 15:10 VIS not applicable for this client. rs5 Outcome: 15:02 Discharge ordered by MD. dr5 15:14 Patient left the ED. rs5 15:14 Discharged to home ambulatory, rs5 15:14 Condition: stable rs5 15:14 Discharge instructions given to patient, family, Instructed on discharge instructions, follow up and referral plans. Demonstrated understanding of instructions, follow-up care, Signatures: Dispatcher [employer] EDVT Brent Joyce, RN RN rs5 Diann Cloud RN RN cm10 Sheri Shepard ra3 Marciano Barber FNP-C CERTIFIED ORTHOPTIST-Cdr5
[2024-02-03 15:54] VITALS: BP 135/79; TEMP 97.2; O2SAT 100
== END 2024-02-03 15:14 | disposition home or self-care (01) ==
LOC: ER 12:16
DX: O20.8 Other hemorrhage in early pregnancy (principal)
CPT/HCPCS: 36415; 76817; 80048; 81001; 84702; 85025; 86900; 86901

== ENCOUNTER 2024-04-04 00:40 | Emergency (ER) | payer SELFPAY ==
[2024-04-04] MEDS ORDERED: ZIPRASIDONE MESYLA 20 MG/VIAL IM ONE (00:43)
[2024-04-04] MEDS ORDERED: WATER FOR INJ,STERILE 10 ML ONE (00:43)
[2024-04-04] MEDS ORDERED: NA CHLORIDE 0.9% 1,000 ML ONE (00:59)
[2024-04-04] MEDS ORDERED: KETOROLAC 30 MG/ML INJ ONE (00:59)
[2024-04-04] MEDS ORDERED: ONDANSETRON 4 MG/2 ML VIAL ONE (00:59)
[2024-04-04 01:33] LABS: Absolute Basophils 0.1 K/uL (0-0.5); Absolute Eosinophils 0.2 K/uL (0-0.5); Absolute Monocytes 0.9 K/uL (0.1-1.3); Absolute Neutrophil 5.8 K/uL (1.8-8.0); Basophils % 0.8 % (0-1.3); Eosinophils % 1.7 % (0-4.4); Hemoglobin 13.4 g/dL (12.0-15.0); Lymphocytes % 36.3 % (15.3-44.8); MCHC 33.5 g/dL (32.0-36.0); MCV 86.5 fL (80-100); MPV 8.3 fL (7.6-11.3); Monocytes % 8.4 % (3.3-12.3); Neutrophils % 52.8 % (41.7-73.7); Platelets 373 thou/uL (152-406); RBC Red Blood Cell Count 4.62 M/uL (3.86-4.86); Red Cell Distribution Width 12.8 % (12.1-15.2)
[2024-04-04 01:37] LABS: Anion Gap 12.5 mEq/L (5.0-15.0); Potassium 3.5 mEq/L (3.5-5.1)
[2024-04-04 01:39] LABS: Barbiturates NEGATIVE (NEGATIVE); Benzodiazepines NEGATIVE (NEGATIVE); Cocaine NEGATIVE (NEGATIVE); METHAMPHETAM NEGATIVE (NEGATIVE); Methadone NEGATIVE (NEGATIVE); Opiates NEGATIVE (NEGATIVE); Phencyclidine NEGATIVE (NEGATIVE); THC Cannibis NEGATIVE (NEGATIVE)
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
[2024-04-04 07:59] VITALS: TEMP 98.5
[2024-04-04 08:04] VITALS: BP 113/74; O2SAT 96
== END 2024-04-04 06:48 | disposition home or self-care (01) ==
LOC: ER 00:40
DX: F10.129 Alcohol abuse with intoxication, unspecified (principal); S00.81XA Abrasion of other part of head, initial encounter; S50.312A Abrasion of left elbow, initial encounter; S60.512A Abrasion of left hand, initial encounter; S80.211A Abrasion, right knee, initial encounter; Z33.1 Pregnant state, incidental; V48.6XXA Car passenger injured in noncollision transport accident in traffic accident, initial encounter
CPT/HCPCS: 36415; 70450; 71260; 72125; 74177; 76815; 80048; 80307; 82077; 84703; 85025; 96361; 96372; 96374; 96375; 99285; J2405; J3486; J7030; Q9967

== ENCOUNTER 2024-04-11 19:47 | Emergency (ER) | payer SELFPAY ==
[2024-04-11] MEDS ORDERED: ONDANSETRON 4 MG/2 ML VIAL ONE (20:17)
[2024-04-11] MEDS ORDERED: FENTANYL CITR 100 MCG/2 ML ONE (20:17)
[2024-04-11 20:44] LABS: Absolute Basophils 0.1 K/uL (0-0.5); Absolute Eosinophils 0.2 K/uL (0-0.5); Absolute Lymphocytes (CBC) 3.1 K/uL (0.7-4.9); Absolute Monocytes 0.9 K/uL (0.1-1.3); Absolute Neutrophil 8.4 K/uL (1.8-8.0); Basophils % 0.5 % (0-1.3); Hematocrit 37.8 % (36.0-45.0); Hemoglobin 12.3 g/dL (12.0-15.0); Lymphocytes % 24.2 % (15.3-44.8); MCH 28.3 pg (27.0-35.0); MCHC 32.6 g/dL (32.0-36.0); MCV 86.9 fL (80-100); MPV 8.4 fL (7.6-11.3); Neutrophils % 66.3 % (41.7-73.7); Platelets 354 thou/uL (152-406); RBC Red Blood Cell Count 4.35 M/uL (3.86-4.86); Red Cell Distribution Width 12.8 % (12.1-15.2)
[2024-04-11 21:03] LABS: Albumin 3.8 g/dL (3.4-5.0); Albumin/Globulin Ratio 1.1 (1.1-1.8); Anion Gap 13.2 mEq/L (5.0-15.0); Bilirubin Total 0.2 mg/dL (0.2-1.0); Globulin 3.5 g/dL (2.3-3.5); Potassium 3.2 mEq/L (3.5-5.1); Protein, Total 7.3 g/dL (6.4-8.2)
[2024-04-11 22:04] LABS: Specific Gravity 1.024 (1.005-1.030); Sqamous Epithelial <5 /HPF (None Seen); Urine Bacteria None Seen /HPF (<20); Urine Bilirubin NEGATIVE (Negative); Urine Blood Negative (Negative); Urine Clarity Turbid (Clear); Urine Color Light-Yellow (Yellow); Urine Crystals Unidentified Few /HPF (None Seen); Urine Culture Reflex Order NOT NEEDED; Urine Glucose NEGATIVE (Negative); Urine Ketones NEGATIVE (Negative); Urine Micro Reflex YN NO BILL MICROSCOPIC; Urine Mucus Slight /HPF (None Seen); Urine Nitrite NEGATIVE (Negative); Urine Protein NEGATIVE (Negative); Urine RBC <5 /HPF (None Seen); Urine Urobilinogen Normal (Normal); Urine WBC <5 /HPF (<5); Urine WBC Clump Rare /HPF (None Seen); Urine Yeast (Budding) Trace /HPF (None Seen)
--- NOTE | 2024-04-11 23:35 | ER ---
Nurse's Notes [facility] Name: Yuli Menjivar Age: 18 yrs Sex: Female : 2005 Arrival Date: 04/11/2024 Time: 19:47 Bed 12 Private MD: Diagnosis: Upper abdominal pain, unspecified Presentation: 04/11 19:52 Chief complaint: EMS states: Pt reports sudden onset abdominal pain that started about jb4 an hour ago. Pt reports pain goes to her back. Took 1gm of tylenol. LMP was last month. Report pain comes in waves like contractions. Coronavirus screen: At this time, the client does not indicate any symptoms associated with coronavirus-19. Ebola Screen: No symptoms or risks identified at this time. Initial Sepsis Screen: Does the patient meet any 2 criteria? No. Patient's initial sepsis screen is negative. Does the patient have a suspected source of infection? No. Patient's initial sepsis screen is negative. Risk Assessment: Do you want to hurt yourself or someone else? Patient reports no desire to harm self or others. Onset of symptoms was April 11, 2024. Transition of care: patient was not received from another setting of care. 19:52 Method Of Arrival: EMS: [facility] jb4 19:52 Acuity: [facility] 3 jb4 Triage Assessment: 19:59 General: Appears in no apparent distress. uncomfortable, Behavior is calm, cooperative, jb4 appropriate for age. Pain: Complains of pain in abdomen Pain does not radiate. Pain currently is 4 out of 10 on a pain scale. Quality of pain is described as crampy, Pain began suddenly. Neuro: Level of Consciousness is awake, alert, obeys commands, Oriented to person, place, time, situation. Cardiovascular: Patient's skin is warm and dry. Respiratory: Airway is patent Respiratory effort is even, unlabored, Respiratory pattern is regular, symmetrical. GI: Abdomen is flat, non-distended, Reports lower abdominal pain, upper abdominal pain. : Denies burning with urination, discharge, inability to void, incontinence. Derm: Skin is intact, Skin is dry, Skin is pale, Skin temperature is warm. Musculoskeletal: Circulation, motion, and sensation intact. Range of motion: intact in all extremities. 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 - Infectious Disease History:: Denies. - Social history:: Smoking status: Patient denies any tobacco usage or history of. Screenin:57 [facility] ED Fall Risk Assessment (Adult) History of falling in the last 3 months, jb4 including since admission No falls in past 3 months (0 pts) Confusion or Disorientation No (0 pts) Intoxicated or Sedated No (0 pts) Impaired Gait No (0 pts) Mobility Assist Device Used No (0 pt) Altered Elimination No (0 pt) Score/Fall Risk Level 0 - 2 = Low Risk Oriented to surroundings, Maintained a safe environment. Abuse screen: Denies threats or abuse. Nutritional screening: No deficits noted. Tuberculosis screening: No symptoms or risk factors identified. Assessment: 21:04 Reassessment: Patient appears in no apparent distress at this time. Patient and/or jb4 family updated on plan of care and expected duration. Pain level reassessed. Patient is alert, oriented x 3, equal unlabored respirations, skin warm/dry/pink. 23:10 Reassessment: Patient appears in no apparent distress at this time. Patient and/or jb4 family updated on plan of care and expected duration. Pain level reassessed. Patient is alert, oriented x 3, equal unlabored respirations, skin warm/dry/pink. 23:57 Reassessment: Patient appears in no apparent distress at this time. Patient and/or jb4 family updated on plan of care and expected duration. Pain level reassessed. Patient is alert, oriented x 3, equal unlabored respirations, skin warm/dry/pink. Vital Signs: 19:52 BP 96 / 61; Pulse 73; Resp 16; Temp 97.6(O); Pulse Ox 99% ; Weight 57.61 kg; Height 5 jb4 ft. 4 in. ; Pain 4/10; 21:04 BP 115 / 87; Pulse 88; Resp 16; Pulse Ox 100% on R/A; jb4 23:12 BP 117 / 90; Pulse 83; Resp 16; Pulse Ox 100% on R/A; jb4 19:52 Body Mass Index 21.80 (57.61 kg, 162.56 cm) jb4 19:52 Pain Scale: Adult jb4 ED Course: 19:48 Patient arrived in ED. rv1 19:51 Ino Juan RN is Primary Nurse. jb4 19:55 Emily Spencer PA-C is PSYCHIATRICP. sb4 19:55 Sunny Yeboah MD is Attending Physician. sb4 19:59 Triage completed. jb4 19:59 Arm band placed on right wrist. jb4 22:52 CT Abd/Pelvis - IV Contrast Only In Process Unspecified. EDMS 23:57 Patient has correct armband on for positive identification. Bed in low position. Call jb4 light in reach. Side rails up X 1. Provided Education on: discharge instructions.. 23:57 No provider procedures requiring assistance completed. IV discontinued, intact, jb4 bleeding controlled, No redness/swelling at site. Pressure dressing applied. Administered Medications: 20:22 Drug: fentaNYL (PF) IVP 25 mcg IVP once Route: IVP; Site: right antecubital; jb4 23:00 Follow up: Response: No adverse reaction; Marked relief of symptoms; Pain is decreased; jb4 RASS: Alert and Calm (0) 20:22 Drug: Ondansetron IVP 4 mg IVP once; over 2 minutes Route: IVP; Site: right antecubital;jb4 23:00 Follow up: Response: No adverse reaction; Marked relief of symptoms jb4 Medication: 23:57 VIS not applicable for this client. jb4 Outcome: 23:34 Discharge ordered by . sb4 23:57 Discharged to home ambulatory, jb4 23:57 Condition: stable 23:57 Discharge instructions given to patient, Instructed on discharge instructions, follow up and referral plans. Demonstrated understanding of instructions, follow-up care, 23:58 Patient left the ED. jb4 Signatures: Dispatcher [employer] EDMI Ino Juan RN RN jb4 Emily Spencer PA-C PA-C sb4 Hortensia Draper rv1 Corrections: (The following items were deleted from the chart) 20:01 19:59 PSHx: Unable to Obtain; jb4 jb4
--- NOTE | 2024-04-11 23:35 | EDPHYS ---
Physician Documentation [facility] Name: Yuli Menjivar Age: 18 yrs Sex: Female : 2005 Arrival Date: 04/11/2024 Time: 19:47 Bed 12 Private MD: ED Physician Sunny Yeboah HPI: 04/12 00:28 This 18 yrs old Black Female presents to ER via EMS with complaints of Abdominal Pain. sb4 00:28 The patient presents with abdominal pain in the upper abdomen. Onset: The sb4 symptoms/episode began/occurred just prior to arrival. The symptoms do not radiate. Associated signs and symptoms: none. 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 associated with nausea. no vomiting. has regular BMs. denies fever. denies any prior episodes. 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 - Infectious Disease History:: Denies. - Social history:: Smoking status: Patient denies any tobacco usage or history of. ROS: 04/12 00:28 Constitutional: Negative for fever, chills, and weight loss, sb4 Abdomen/GI: Positive for abdominal pain, nausea, All other systems are negative, Exam: 00:28 Head/Face: Normocephalic, atraumatic. Eyes: Extra-ocular motions intact. Periorbital sb4 areas with no swelling, redness, or edema. ENT: Mucous membranes moist. Cardiovascular: Regular rate and rhythm with a normal S1 and S2. Respiratory: No increased work of breathing, no retractions or nasal flaring. Abdomen/GI: Soft, non-tender, no distension. Skin: Warm, dry with normal turgor. Normal color with no rashes, no lesions, and no evidence of cellulitis. MS/ Extremity: Pulses equal, no cyanosis. Neurovascular intact. Full, normal range of motion. Neuro: Awake and alert, GCS 15, oriented to person, place, time, and situation. Motor strength 5/5 in all extremities. Sensory grossly intact. 00:28 Constitutional: The patient appears alert, awake, in obvious pain, Vital Signs: 01/30 19:52 BP 96 / 61; Pulse 73; Resp 16; Temp 97.6(O); Pulse Ox 99% ; Weight 57.61 kg; Height 5 jb4 ft. 4 in. ; Pain 4/10; 21:04 BP 115 / 87; Pulse 88; Resp 16; Pulse Ox 100% on R/A; jb4 23:12 BP 117 / 90; Pulse 83; Resp 16; Pulse Ox 100% on R/A; jb4 19:52 Body Mass Index 21.80 (57.61 kg, 162.56 cm) jb4 19:52 Pain Scale: Adult jb4 MDM: 19:55 Medical Screening Exam initiated sb4 04/12 00:31 Data reviewed: vital signs, nurses notes, EMS record, lab test result(s), radiologic sb4 studies, and as a result, I will discharge patient. Counseling: I had a detailed discussion with the patient and/or guardian regarding the historical points, exam findings, and any diagnostic results supporting the discharge/admit diagnosis, lab results, radiology results, to return to the emergency department if symptoms worsen or persist or if there are any questions or concerns that arise at home. 00:32 ED course: serum preg is positive, beta is 18. patient reports miscarriage in February. sb4 had CT abd/pelv 1 week ago that was negative. 04/11 19:58 Order name: CBC with Diff; Complete Time: 20:57 sb4 04/11 19:58 Order name: CMP; Complete Time: 21:04 sb4 04/11 19:58 Order name: Lipase; Complete Time: 21:04 sb4 04/11 19:58 Order name: Beta hcg; Complete Time: 21:04 sb4 04/11 19:58 Order name: UAM; Complete Time: 22:09 sb4 04/11 20:02 Order name: Test, Serum; Complete Time: 20:57 4 04/11 22:09 Order name: CT Abd/Pelvis - IV Contrast Only sb4 04/11 19:58 Order name: IV Saline Lock; Complete Time: 20:03 sb4 04/11 19:58 Order name: Labs collected and sent; Complete Time: 20:22 sb4 Administered Medications: 04/11 20:22 Drug: fentaNYL (PF) IVP 25 mcg IVP once Route: IVP; Site: right antecubital; jb4 23:00 Follow up: Response: No adverse reaction; Marked relief of symptoms; Pain is decreased; jb4 RASS: Alert and Calm (0) 20:22 Drug: Ondansetron IVP 4 mg IVP once; over 2 minutes Route: IVP; Site: right antecubital;jb4 23:00 Follow up: Response: No adverse reaction; Marked relief of symptoms jb4 Disposition Summary: 04/11/24 23:34 Discharge Ordered Notes: Location: Home sb4 Problem: new sb4 Symptoms: have improved sb4 Condition: Stable sb4 Diagnosis - Upper abdominal pain, unspecified sb4 Followup: sb4 - With: Emergency Department - When: As needed - Reason: Trouble breathing, Worsening of condition Discharge Instructions: - Discharge Summary Sheet sb4 - Abdominal Pain, Adult sb4 Forms: - Patient Portal Instructions sb4 - Leadership Thank You Letter sb4 Signatures: Dispatcher [employer] Ino Gomes RN RN jb4 Emily Spencer PA-C PA-C sb4 Corrections: (The following items were deleted from the chart) 20:01 19:59 PSHx: Unable to Obtain; jb4 jb4
--- NOTE | 2024-04-11 23:52 | RAD REPORT ---
CLINICAL HISTORY: ABD PAIN. COMPARISON: None. TECHNIQUE: CT of the abdomen and pelvis was performed following intravenous administration of iodinat ed contrast. Oral contrast was not administered. Axial, coronal, and sagittal soft tissue window reconstructions were created and sent to PACS. This exam was performed according to our departmental dose-optimization program, which includes autom ated exposure control, adjustment of the mA and/or kV according to patient size and/or use of iterative reconstruction technique. FINDINGS: Thoracic: No significant abnormality. Hepatobiliary: No concerning hepatic lesion identified. The portal veins are patent. Distended gallbl adder with no wall thickening or calcified stones. Mild intrahepatic biliary ductal prominence. Possible mild periportal edema. Normal caliber common bile duct, measuring up to 0.5 cm. No calcified choledocholithiasis is visualized. Pancreas: Unremarkable. Spleen: Unremarkable. Gastrointestinal: Moderately distended fluid-filled stomach. No evidence of bowel obstruction or derik enteric inflammation. The appendix is normal. Moderate stool burden. Adrenals: No abnormality identified in either adrenal gland. Renal: No concerning parenchymal lesion in either kidney. No hydronephrosis or urolithiasis. Bladder/Reproductive: Mild circumferential wall thickening of the underdistended urinary bladder. Inv oluting left ovarian corpus luteum cyst. Vascular/Lymphatics: No lymphadenopathy identified by CT size criteria. Abdominal aorta is normal in caliber. Musculoskeletal: No concerning osseous lesion identified. Small benign bone island in the L3 vertebra l body. Fluid / peritoneum: No significant free fluid. No free intraperitoneal air identified. IMPRESSION 1. Mild intrahepatic biliary ductal prominence. Normal caliber common bile duct. Possible mild derik portal edema. Findings are nonspecific. Consider correlation with LFTs. 2. Distended gallbladder with no wall thickening or calcified stones. 3. Moderately distended fluid-filled stomach. 4. No small bowel distention. Moderate stool burden. 5. Mild urinary bladder wall thickening, which could be related to underdistention or cystitis. Electronically signed by: Zenaida Benitez MD 04/11/2024 11:26 PM [facility] Due to temporary technical issues with the PACS/Datometry reporting system, reports are being bettye d by the in-house radiologist without review as a courtesy to ensure prompt reporting the interpreting radiologist is fully responsible for the content of the report. Transcribed Date/Time: 04/11/2024 11:51 PM
[2024-04-12 09:10] VITALS: TEMP 97.6
[2024-04-12 09:11] VITALS: O2SAT 100
[2024-04-12 09:12] VITALS: BP 117/90
== END 2024-04-11 23:58 | disposition home or self-care (01) ==
LOC: ER 19:47
DX: R10.10 Upper abdominal pain, unspecified (principal)
CPT/HCPCS: 36415; 74177; 80053; 81001; 83690; 84702; 84703; 85025; 96374; 96375; 99284; J2405; J3010; Q9967